=== PATIENT | male | born 1975 | race Caucasian/White ===

== ENCOUNTER 2022-11-10 16:49 | Inpatient (IN) ==
[2022-11-10] MEDS ORDERED: SODIUM CHLORIDE 0.9% 1000ML 2,000 ML IV ONE (17:32)
--- NOTE | 2022-11-10 17:59 | Emergency Department Note ---
Impression & Plan Abdominal pain, Diarrhea ED Provider Note NAME: ROCKY ANGUIANO AGE: 46 SEX: M : 1975 ARRIVES VIA: Walk-In INFORMANT: Patient ED PROVIDER(S): Skyler Spangler DO CHIEF COMPLAINT: Abdominal pain HPI: Patient is a 46-year-old male who presents to the ER for diffuse abdominal pain and intermittent diarrhea and constipation for the past 1-1/2 months. Pain is diffuse throughout the belly. Denies any headache or change in vision. Admits to nausea and some intermittent vomiting. No dysuria, urgency, or frequency. No other exacerbating or remitting factors. He does have an appointment coming up with dental for removal of teeth. No blood in stool. PAST MEDICAL HISTORY:See Below PAST SURGICAL HISTORY:See Below FAMILY HISTORY:See Below SOCIAL HISTORY:See Below HOME MEDICATIONS:See Below ALLERGIES:See Below VITALS:See Below PHYSICAL EXAMINATION: GENERAL: Sitting up in bed, alert, well appearing, well nourished, no distress, non-toxic EYE EXAM: normal conjunctiva. OROPHARYNX: mucous membranes are moist NECK: supple, no nuchal rigidity, no adenopathy, non-tender LUNGS: Clear to auscultation. Normal chest wall mechanics HEART: no murmurs, S1 normal and S2 normal ABDOMEN: abdomen soft, non-tender, normo-active bowel sounds, no masses, no rebound or guarding. 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 UPPER EXTREMITIES: upper extremities are grossly normal. LOWER EXTREMITIES: No pitting edema. NEURO EXAM: Normal sensorium, cranial nerves II-XII grossly intact, normal spee ch, no gross weakness of arms, no gross weakness of legs. MEDICAL DECISION MAKING: Patient is a 46-year-old male who presents to the ER for abdominal pain associate with diarrhea and constipation intermittently. Does have a history of IBS. IV was established blood work was obtained. Labs show mild leukocytosis 12.7 thousand. Hemoglobin was elevated to 18 which I favor secondary to D hydration. BMP with LFTs bili Mike was unremarkable. UA was clean. Stool cul ture was clean. Patient was positive for COVID. Patient was given IV fluids Bentyl and Toradol. Updated him following a CT which showed a small amount of colitis I did recommend following up with gastroenterology as an outpatient. He requested to see the hospitalist as he did not want to leave. I discussed with Dr. Medellin evaluated him and admitted him as he was COVID-positive for GI to evaluate in the morning. Triage Nursing notes reviewed. Limited review of prior medical records performed Vital Signs: reviewed and remarkable for no significant abnormalities Differential diagnosis: Differential diagnoses includes but is not limited to gastritis, peptic ulcer disease, GERD, gallbladder disease, pancreatitis, small bowel obstruction, appendicitis, diverticulitis, hernia, urinary tract infection, torsion, perforation, trauma, infectious. ER treatment provided: See below Diagnostics interpreted by me include EKG and cardiac monitoring as listed below: -Cardiac Monitoring: An order was placed for continuous cardiac monitoring. The monitor shows a rate of 90 with sinus rhythm. -ECG: none -Laboratory studies:Interpreted by me as stated above in MDM and shown below. Imaging studies: Xrays: As interpreted by me:none CTs show: CT abdomen pelvis shows no obstruction per my read Consultation(s): As described in MDM Procedures:none Critical Care: None Past Med/Surg History Social History Smoking Status: Current every day smoker Preferred Language: Tam[place] Feels Safe at Home: Yes Home Meds Home Medications Medication Instructions Recorded Confirmed atorvastatin 40 mg tablet 40 mg PO DAILY 11/10/22 11/10/22 bupropion HCl 150 mg 24 hr tablet, 150 mg PO DAILY 11/10/22 11/10/22 extended release omeprazole 40 mg capsule,delayed 40 mg PO DAILY 11/10/22 11/10/22 release quetiapine 400 mg tablet 400 mg PO DAILY 11/10/22 11/10/22 Previous Rx's Medication Instructions Recorded dicyclomine 10 mg capsule 10 mg PO BID #10 caps 11/10/22 Results & Data (ED) Vital Signs Vital Signs - 24 hr 11/10/22 16:51 11/10/22 19:05 Temperature 36.8 C Temperature Source Temporal Artery Scan Pulse Rate 113 H Pulse Rate [Finger] 92 H Respiratory Rate 20 20 Blood Pressure 132/91 Blood Pressure [Right Arm] 138/82 Blood Pressure Mean 104 Blood Pressure Mean [Right Arm] 100 Pulse Oximetry 96 95 Oxygen Delivery Method Room Air Room Air Sepsis Recent Fever Within 48 Hours No Sepsis New/Unexplained Change in Mental Status N/A Sepsis Action Taken by Nursing No Action Required Laboratory Data 11/10/22 17:49 11/10/22 17:49 Lab Results 11/10/22 11/10/22 11/10/22 Range/Units 17:49 17:49 17:52 WBC 12.74 H (4.8-10.8) K/ul RBC 5.97 (4.70-6.10) M/uL Hgb 18.9 H (14.0-18.0) g/dl Hct 52.9 H (42.0-52.0) % MCV 88.6 (80.0-100.0) fL MCH 31.7 (25.0-34.0) pg MCHC 35.7 (32.0-36.0) g/dL RDW Std Deviation 36.1 L (36.4-46.3) fL RDW Coeff of Calderon 11.4 L (11.5-14.5) % Plt Count 220 (130-400) K/uL MPV 10.9 (9.4-12.4) fL Immature Gran % (Auto) 0.5 % Neut % (Auto) 80.6 % Lymph % (Auto) 13.2 % Bledsoe % (Auto) 5.3 % Eos % (Auto) 0.2 % Baso % (Auto) 0.2 % Neut # (Auto) 10.28 H (1.40-6.50) K/uL Lymph # (Auto) 1.68 (1.2-3.4) K/uL Bledsoe # (Auto) 0.67 H (0.11-0.59) K/uL Eos # (Auto) 0.02 (0-0.50) K/uL Baso # (Auto) 0.03 (0-0.2) K/uL Immature Gran # (Auto) 0.06 (0.01-0.20) K/uL Sodium 138 (136-145) mmol/L Potassium 3.8 (3.5-5.1) mmol/L Chloride 109 H (98-107) mmol/L Carbon Dioxide 22 (21-32) mmol/L Anion Gap 7 (3-11) BUN 5 L (6-23) mg/dl Creatinine 0.71 (0.6-1.4) mg/dl Est Cr Clr Drug Dosing Not Reportable Est GFR ( Amer) 129.5 ml/min Est GFR (Non-Af Amer) 111.7 ml/min BUN/Creatinine Ratio 7.0 L (10-20) Glucose 99 (70-99(Fasting)) mg/dl Calcium 9.6 (8.6-10.3) mg/dl Total Bilirubin 0.5 (0.2-1.0) mg/dl AST 14 (13-39) U/L ALT 8 (7-52) U/L Alkaline Phosphatase 96 (34-104) U/L Total Protein 7.2 (6.0-8.3) gm/dl Albumin 3.9 (3.4-5.0) gm/dl Globulin 3.3 (2.5-4.0) gm/dl Albumin/Globulin Ratio 1.2 (0.9-2) Lipase 15 (11-82) U/L Urine Color Yellow Urine Appearance Clear (Clear) Urine pH 7.5 (4.5-7.5) Ur Specific Economy 1.003 (1.000-1.030) Urine Protein Negative (Negative) Urine Glucose (UA) Negative (Negative) Urine Ketones Negative (Negative) Urine Blood Negative (Negative) Urine Nitrite Negative (Negative) Urine Bilirubin Negative (Negative) Urine Urobilinogen Negative (Negative) Ur Leukocyte Esterase Negative (Negative) Stl C. cayetanensis PCR (NotDetected) Stool Rotavirus A PCR (NotDetected) Stl Adenov F 40/41 PCR (NotDetected) Stool Astrovirus (PCR) (NotDetected) Stool Campylobacter PCR (NotDetected) Stl C. diff Tox B Gene (Neg) Stool Cryptosporidium PCR (NotDetected) Stl E.coli Shiga Tox PCR (NotDetected) Stl Enterotoxigenic E PCR (NotDetected) Stool EPEC (PCR) (NotDetected) Stool EAEC (PCR) (NotDetected) Stl E. histolytica PCR (NotDetected) Stool Giardia Lamblia PCR (NotDetected) Stool Salmonella PCR (NotDetected) Stool Sapovirus (PCR) (NotDetected) Stl P. shigelloides PCR (NotDetected) Stl Shigella/EIEC PCR (NotDetected) St Y.enterocolitica PCR (NotDetected) Stool Vibrio (PCR) (NotDetected) Stl Vibrio cholerae PCR (NotDetected) Stl Norovirus GI/GII PCR (NotDetected) SARS-CoV-2, RNA, NAAT (NEGATIVE) 11/10/22 11/10/22 11/10/22 Range/Units 18:39 18:39 21:05 WBC (4.8-10.8) K/ul RBC (4.70-6.10) M/uL Hgb (14.0-18.0) g/dl Hct (42.0-52.0) % MCV (80.0-100.0) fL MCH (25.0-34.0) pg MCHC (32.0-36.0) g/dL RDW Std Deviation (36.4-46.3) fL RDW Coeff of Calderon (11.5-14.5) % Plt Count (130-400) K/uL MPV (9.4-12.4) fL Immature Gran % (Auto) % Neut % (Auto) % Lymph % (Auto) % Bledsoe % (Auto) % Eos % (Auto) % Baso % (Auto) % Neut # (Auto) (1.40-6.50) K/uL Lymph # (Auto) (1.2-3.4) K/uL Bledsoe # (Auto) (0.11-0.59) K/uL Eos # (Auto) (0-0.50) K/uL Baso # (Auto) (0-0.2) K/uL Immature Gran # (Auto) (0.01-0.20) K/uL Sodium (136-145) mmol/L Potassium (3.5-5.1) mmol/L Chloride (98-107) mmol/L Carbon Dioxide (21-32) mmol/L Anion Gap (3-11) BUN (6-23) mg/dl Creatinine (0.6-1.4) mg/dl Est Cr Clr Drug Dosing Est GFR ( Amer) ml/min Est GFR (Non-Af Amer) ml/min BUN/Creatinine Ratio (10-20) Glucose (70-99(Fasting)) mg/dl Calcium (8.6-10.3) mg/dl Total Bilirubin (0.2-1.0) mg/dl AST (13-39) U/L ALT (7-52) U/L Alkaline Phosphatase (34-104) U/L Total Protein (6.0-8.3) gm/dl Albumin (3.4-5.0) gm/dl Globulin (2.5-4.0) gm/dl Albumin/Globulin Ratio (0.9-2) Lipase (11-82) U/L Urine Color Urine Appearance (Clear) Urine pH (4.5-7.5) Ur Specific Economy (1.000-1.030) Urine Protein (Negative) Urine Glucose (UA) (Negative) Urine Ketones (Negative) Urine Blood (Negative) Urine Nitrite (Negative) Urine Bilirubin (Negative) Urine Urobilinogen (Negative) Ur Leukocyte Esterase (Negative) Stl C. cayetanensis PCR Not Detected (NotDetected) Stool Rotavirus A PCR Not Detected (NotDetected) Stl Adenov F 40/41 PCR Not Detected (NotDetected) Stool Astrovirus (PCR) Not Detected (NotDetected) Stool Campylobacter PCR Not Detected (NotDetected) Stl C. diff Tox B Gene Negative Cdiff Gene (Neg) Stool Cryptosporidium PCR Not Detected (NotDetected) Stl E.coli Shiga Tox PCR Not Detected (NotDetected) Stl Enterotoxigenic E PCR Not Detected (NotDetected) Stool EPEC (PCR) Not Detected (NotDetected) Stool EAEC (PCR) Not Detected (NotDetected) Stl E. histolytica PCR Not Detected (NotDetected) Stool Giardia Lamblia PCR Not Detected (NotDetected) Stool Salmonella PCR Not Detected (NotDetected) Stool Sapovirus (PCR) Not Detected (NotDetected) Stl P. shigelloides PCR Not Detected (NotDetected) Stl Shigella/EIEC PCR Not Detected (NotDetected) St Y.enterocolitica PCR Not Detected (NotDetected) Stool Vibrio (PCR) Not Detected (NotDetected) Stl Vibrio cholerae PCR Not Detected (NotDetected) Stl Norovirus GI/GII PCR Not Detected (NotDetected) SARS-CoV-2, RNA, NAAT POSITIVE A* (NEGATIVE) Administered Medications Discontinued Medications Dicyclomine HCl (Dicyclomine Hcl 10 Mg Cap) 10 mg PO NOW ONE Stop: 11/10/22 20:21 Last Admin: 11/10/22 21:02 Dose: 10 mg Documented By: KMF Sodium Chloride (Nss 1000ml) 2,000 mls @ 999 mls/hr IV .Q2H1M ONE Stop: 11/10/22 19:32 Last Infusion: 11/10/22 20:37 Dose: 0 mls/hr Documented By: Admin: 11/10/22 17:48 Dose: 999 mls/hr Documented By: RICO Ioversol (Optiray 350 100ml) 87 ml IV ONCE ONE Stop: 11/10/22 18:30 Last Admin: 11/10/22 18:29 Dose: 87 ml Documented By: ZINA Ketorolac Tromethamine (Ketorolac Tromethamine 15 Mg/Ml Vial) 15 mg IV NOW ONE Stop: 11/10/22 20:02 Last Admin: 11/10/22 20:05 Dose: 15 mg Documented By: KAVEH Imaging Data Radiologist's Impression: Abdomen/Pelvis CT 11/10/22 17:32 CT SCAN OF THE ABDOMEN AND PELVIS WITH IV CONTRAST CLINICAL HISTORY: Generalized abdominal pain. Nausea and diarrhea. COMPARISON STUDY: No priors. TECHNIQUE: Following the IV administration of 87 cc of Optiray 350, CT scan of the abdomen and pelvis is performed from the lung bases to the proximal femora. Images are reviewed in the axial, sagittal, and coronal planes. IV contrast was administered without complication. A dose lowering technique was utilized adhering to the principles of ALARA. CT DOSE: 526.82 mGy.cm FINDINGS: Lung bases: The heart is normal in size and without pericardial effusion. The lung bases are clear. Liver: The contrast-enhanced liver is normal in size, contour, and attenuation. There is no intrahepatic biliary ductal dilatation. The hepatic veins and portal veins are patent. Gallbladder: Unremarkable. Spleen: Normal in size and attenuation. Pancreas: Unremarkable. Adrenal glands: Unremarkable. Kidneys: The contrast enhanced kidneys are normal in size and without hydro nephrosis. The kidneys enhance symmetrically. There are at least 2 nonobstructing calculi seen in both kidneys. These measure up to 4 mm. No ureteral stone is identified. There are numerous small bilateral renal cysts (greater than 10 on the right and at least 7 on the left). The largest cysts are in the right upper pole and measure up to 2.3 cm. Abdominal vasculature: The abdominal aorta is normal in course and caliber noting scattered foci of atherosclerotic calcification. Bowel: There is no bowel obstruction. Liquid stool seen throughout the colon. Mild wall thickening is seen involving the left colon with faint surrounding infiltration. The appendix is well-visualized and normal. Peritoneum: There is no intraperitoneal free air or abdominal ascites. Lymphadenopathy: None. Pelvic viscera: The bladder is distended but otherwise normal in appearance. The prostate and seminal vesicles are normal as visualized. Skeletal structures: No lytic or blastic lesions are seen. There is a mild chronic superior endplate compression deformity of L1. IMPRESSION: 1. There is evidence of a mild nonspecific colitis. Clinical correlation will be required. 2. Bilateral nephrolithiasis. 3. There are numerous small bilateral renal cysts. 4. Additional findings as above. ACT 112: Negative or not required by law. Electronically signed by: Driss Gonzales M.D. 11/10/2022 7:25 PM Discharge Plan Visit Data Chief Complaint: Illness Stated Complaint: CONSTIPATION, DIARRHEA, DENTAL INFECTION ED Provider: Skyler Spangler Discharge Problem: Abdominal pain, Diarrhea Discharge Instructions Krames/Other Patient Handouts: Abdominal Pain Activity Restrictions/Additional Instructions: Please follow up with your primary care doctor with in the next 24 hours. Any worsening of your symptoms, please return to the ED immediately. This includes any fevers greater than 100.4, worsening pain, chest pain, shortness breath, persistent nausea, vomiting, unable to eat or drink, or any other concerning signs or symptoms from your standpoint. You were found to have a blood pressure greater than 120 systolic over 90 diastolic. Due to the new Medicare guidelines, we are now recommending that you follow up with your primary care doctor in regards to this elevated blood pressure. Forms Stand Alone Forms: [facility] [employer] Prescriptions Prescriptions: New dicyclomine 10 mg capsule 10 mg PO BID Qty: 10 0RF No Action atorvastatin 40 mg tablet 40 mg PO DAILY bupropion HCl 150 mg tablet extended release 24 hr 150 mg PO DAILY omeprazole 40 mg capsule,delayed release(DR/EC) 40 mg PO DAILY quetiapine 400 mg tablet 400 mg PO DAILY Referrals Referrals: PCP,NO [Physician] -
[2022-11-10 18:09] LABS: Appearance Urine Clear (Clear); Bilirubin Urine Negative (Negative); Blood Urine Negative (Negative); Color Urine Yellow; Glucose Urine UA Negative (Negative); Ketones Urine Negative (Negative); Leukocyte Esterase Urine Negative (Negative); Nitrite Urine Negative (Negative); Protein Urine Negative (Negative); Specific Gravity Urine 1.003 (1.000-1.030); Urobilinogen Urine Negative (Negative); pH Urine 7.5 (4.5-7.5)
[2022-11-10 18:11] LABS: Basophils # (auto) 0.03 K/uL (0-0.2); Basophils % (auto) 0.2 %; Eosinophils # (auto) 0.02 K/uL (0-0.50); Eosinophils % (auto) 0.2 %; Hematocrit (blood only) 52.9 % (42.0-52.0); Hemoglobin 18.9 g/dl (14.0-18.0); Immature Granulocytes # (auto) 0.06 K/uL (0.01-0.20); Immature Granulocytes % (auto) 0.5 %; Lymphocytes # (auto) 1.68 K/uL (1.2-3.4); Lymphocytes % (auto) 13.2 %; Mean Corpuscular Hemoglobin 31.7 pg (25.0-34.0); Mean Corpuscular Hgb Conc 35.7 g/dL (32.0-36.0); Mean Corpuscular Volume 88.6 fL (80.0-100.0); Mean Platelet Volume 10.9 fL (9.4-12.4); Monocytes # (auto) 0.67 K/uL (0.11-0.59); Monocytes % (auto) 5.3 %; Neutrophils # (auto) 10.28 K/uL (1.40-6.50); Neutrophils % (auto) 80.6 %; Platelet Count 220 K/uL (130-400); RDW Coefficient of Variation 11.4 % (11.5-14.5); RDW Standard Deviation 36.1 fL (36.4-46.3); Red Blood Count 5.97 M/uL (4.70-6.10); White Blood Count 12.74 K/ul (4.8-10.8)
[2022-11-10 18:23] LABS: Alanine Aminotransferase 8 U/L (7-52); Albumin Globulin Ratio 1.2 (0.9-2); Albumin Level 3.9 gm/dl (3.4-5.0); Alkaline Phosphatase 96 U/L (34-104); Anion Gap 7 (3-11); Aspartate Aminotransferase 14 U/L (13-39); Bilirubin,Total 0.5 mg/dl (0.2-1.0); Blood Urea Nitrogen 5 mg/dl (6-23); Calcium 9.6 mg/dl (8.6-10.3); Carbon Dioxide 22 mmol/L (21-32); Chloride 109 mmol/L (98-107); Est GFR (African American) 129.5 ml/min; Est GFR (Non-African American) 111.7 ml/min; Globulin 3.3 gm/dl (2.5-4.0); Glucose 99 mg/dl (70-99(Fasting)); Lipase 15 U/L (11-82); Potassium 3.8 mmol/L (3.5-5.1); Sodium 138 mmol/L (136-145); Total Protein 7.2 gm/dl (6.0-8.3)
[2022-11-10] MEDS ORDERED: OPTIRAY 350 100ml IV ONE (18:29)
--- NOTE | 2022-11-10 19:27 | CT Scan Report ---
CT SCAN OF THE ABDOMEN AND PELVIS WITH IV CONTRAST CLINICAL HISTORY: Generalized abdominal pain. Nausea and diarrhea. COMPARISON STUDY: No priors. TECHNIQUE: Following the IV administration of 87 cc of Optiray 350, CT scan of the abdomen and pelvi s is performed from the lung bases to the proximal femora. Images are reviewed in the axial, sagittal , and coronal planes. IV contrast was administered without complication. A dose lowering technique wa s utilized adhering to the principles of ALARA. CT DOSE: 526.82 mGy.cm FINDINGS: Lung bases: The heart is normal in size and without pericardial effusion. The lung bases are clear. Liver: The contrast-enhanced liver is normal in size, contour, and attenuation. There is no intrahepa tic biliary ductal dilatation. The hepatic veins and portal veins are patent. Gallbladder: Unremarkable. Spleen: Normal in size and attenuation. Pancreas: Unremarkable. Adrenal glands: Unremarkable. Kidneys: The contrast enhanced kidneys are normal in size and without hydronephrosis. The kidneys enh ance symmetrically. There are at least 2 nonobstructing calculi seen in both kidneys. These measure u p to 4 mm. No ureteral stone is identified. There are numerous small bilateral renal cysts (greater t pimentel 10 on the right and at least 7 on the left). The largest cysts are in the right upper pole and me asure up to 2.3 cm. Abdominal vasculature: The abdominal aorta is normal in course and caliber noting scattered foci of a therosclerotic calcification. Bowel: There is no bowel obstruction. Liquid stool seen throughout the colon. Mild wall thickening is seen involving the left colon with faint surrounding infiltration. The appendix is well-visualized and normal. Peritoneum: There is no intraperitoneal free air or abdominal ascites. Lymphadenopathy: None. Pelvic viscera: The bladder is distended but otherwise normal in appearance. The prostate and seminal vesicles are normal as visualized. Skeletal structures: No lytic or blastic lesions are seen. There is a mild chronic superior endplate compression deformity of L1. IMPRESSION: 1. There is evidence of a mild nonspecific colitis. Clinical correlation will be required. 2. Bilateral nephrolithiasis. 3. There are numerous small bilateral renal cysts. 4. Additional findings as above. ACT 112: Negative or not required by law. Electronically signed by: Driss Gonzales M.D. 11/10/2022 7:25 PM
[2022-11-10] MEDS ORDERED: KETOROLAC TROMETHAMINE 15 MG/ML VIAL IV ONE (20:01)
[2022-11-10 20:11] LABS: Adenovirus F 40/41 PCR Not Detected (NotDetected); Astrovirus PCR Not Detected (NotDetected); Campylobacter PCR Not Detected (NotDetected); Cryptosporidium PCR Not Detected (NotDetected); Cyclospora cayetanensis PCR Not Detected (NotDetected); Entamoeba histolytica PCR Not Detected (NotDetected); Enteroaggregative E.coli(EAEC) Not Detected (NotDetected); Enteropathogenic E.coli (EPEC) Not Detected (NotDetected); Enterotoxigenic E.coli (ETEC) Not Detected (NotDetected); Giardia lamblia PCR Not Detected (NotDetected); Norovirus GI/GII PCR Not Detected (NotDetected); Plesiomonas shigelloides PCR Not Detected (NotDetected); Rotavirus A PCR Not Detected (NotDetected); Salmonella PCR Not Detected (NotDetected); Sapovirus PCR Not Detected (NotDetected); Shiga-like Toxin E.coli (STEC) Not Detected (NotDetected); Shigella/Enteroinvasive E.coli Not Detected (NotDetected); Vibrio cholerae PCR Not Detected (NotDetected); Vibrio species PCR Not Detected (NotDetected); Yersinia enterocolitica PCR Not Detected (NotDetected)
[2022-11-10] MEDS ORDERED: DICYCLOMINE HCL 10 MG CAP PO ONE (20:20)
[2022-11-10] MEDS ORDERED: Patient's ALLERGY Info needs ENTERED STA (21:40)
[2022-11-10] MEDS ORDERED: ONDANSETRON INJ 2 MG/ML 2 ML VIAL IV STA (21:45)
[2022-11-10] MEDS ORDERED: MoRPHine SULFATE 2 MG/ML CARP IV STA (21:45)
[2022-11-10] MEDS: D5W AND 1/2NSS 1,000 ML IV SCH (23:14)
[2022-11-10] MEDS ORDERED: ACETAMINOPHEN 325 MG TAB PO PRN (23:14)
[2022-11-10] MEDS ORDERED: PIPERACILLIN/TAZOBACTAM 3.375 GM (over 30 mins) IV ONE (23:30)
--- NOTE | 2022-11-10 23:33 | History and Physical Report ---
DATE OF ADMISSION: 11/10/2022. CHIEF COMPLAINT: Abdominal pain, chronic diarrhea. HISTORY OF PRESENT ILLNESS: This is a 46-year-old male with past medical history significant for hyperlipidemia, fatty liver, vitamin D deficiency, GERD, obesity, recurrent depression, history of suicide attempt, generalized anxiety disorder, tobacco use disorder, presents with severe abdominal pain, cramps in his abdomen, going into his rectal region, having diarrhea for several months and also currently is having some nausea and vomiting bringing just some foam, has some runny nose and cough. Denies any fevers. He also gets on and off chest pains, it is most likely gas pain coming from the stomach. Has some headache, some blurred visions. Has poor dentition. Has teeth aches and is supposed to see dentist next month and plan for tooth extraction as per patient.The pain is radiating to his right ear. He was also in [facility] in June. At that time, he complained of losing weight and bowel changes and was also found to have anal mass. 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 There is a plan for resection of the mass in January. Stool BioFire came back negative, but rapid COVID test came back positive. CT abdomen and pelvis is showing nonspecific colitis, hemodynamically stable. ALLERGIES: BEE VENOM, LACTULOSE. PAST MEDICAL HISTORY: As mentioned above. PAST SURGICAL HISTORY: EGDs, IR biopsy. MEDICATIONS: The patient is on atorvastatin 40 mg p.o. daily, bupropion 150 mg p.o. daily, dicyclomine 10 mg p.o. b.i.d., omeprazole 40 mg p.o. daily, quetiapine 400 mg p.o. daily. FAMILY HISTORY: Significant for no family history on file. SOCIAL HISTORY: Smokes 1 pack, currently smoking about 1-2 packs a day. Alcohol, little. Smokes marijuana as per records. REVIEW OF SYSTEMS: As per HPI. Rest of the review of systems is negative. PHYSICAL EXAMINATION: GENERAL: The patient is of moderate build, not in acute distress. VITAL SIGNS: Temperature 36.8, pulse 92, respiratory rate 20, blood pressure 138/82, oxygen 95% on room air. HEENT: Pupils equal, round, and reactive to light. Oral mucosa, poor dentition. NECK: No neck masses seen. CARDIOVASCULAR: S1 and S2 heard. Regular rate and rhythm. No murmur, no gallop. RESPIRATORY SYSTEM: Normal AP diameter. No accessory muscle use. No wheezing or crackles. ABDOMEN: Soft, bowel sounds present. Diffuse tenderness, guarding present, no distention. CENTRAL NERVOUS SYSTEM: Alert and oriented. Speech is clear. No facial droop. Obeys simple commands. Moves extremities. EXTREMITIES: No edema, no erythema. GASTROINTESTINAL: Visible mass in the anal region. LABORATORY DATA: WBC 12, hemoglobin 18.9, hematocrit 52.9, platelets 220. Sodium 138, potassium 3.8, chloride 109, CO2 of 22, BUN 5, creatinine 0.7, serum glucose 99, calcium 9.6, total bilirubin 0.5, AST 14, AST14, alkaline phosphatase 96, lipase 15. Urinalysis negative. Stool studies, BioFire negative. SARS-CoV-2 rapid test positive. IMAGING DATA: CT abdomen and pelvis with IV contrast is showing mild nonspecific colitis, bilateral nephrolithiasis, numerous small bilateral renal cysts. ASSESSMENT AND PLAN: This is a 46-year-old male who presents with ongoing abdominal pain and chronic diarrhea and nausea, no vomiting. 1. Abdominal pain, chronic diarrhea, nausea, vomiting: CT scan is showing nonspecific colitis. We will keep him in the hospital and clear liquid diet, IV fluids, IV antiemetics, IV pain medication p.r.n. GI consult in a.m. 2. 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 There is a plan for resection. 3. Poor dentition: There is plan to follow up with dentist. He is saying that they are going to take all his teeth out. We will empirically place him on Zosyn while in the hospital. 4. COVID positive: Has some cough and headache and some runny nose. Saturating okay on room air. Will do COVID precautions. 5. History of depression, suicidal ideations and attempts, generalized anxiety disorder: Continue his home medication of quetiapine, bupropion, ativan prn. 6. Ongoing tobacco abuse: Needs counseling. 7. Hyperlipidemia, on statin. 8. Deep venous thrombosis prophylaxis: Will place him on Lovenox. DISPOSITION: Closely monitor in the medical floor. PT/OT prior to discharge. Social service to help with discharge planning. Job ID: [id number] [facility]
[2022-11-10] MEDS: MoRPHine SULFATE 4 MG/ML 1 ML CARP\\VIAL IV PRN (23:37)
[2022-11-11] MEDS: ENOXAPARIN INJ 40 MG/0.4 ML SYR SQ SCH ×2 (00:04→20:52)
[2022-11-11] MEDS ORDERED: Nursing to Pharmacy Communication SCH (00:30)
[2022-11-11] MEDS: LORazepam 1 MG TAB PO PRN ×3 (00:38→14:33)
[2022-11-11] MEDS: NICOTINE 14 MG/24 HR PATCH TD SCH ×2 (00:39→07:20)
[2022-11-11] MEDS: QUEtiapine FUMARATE 200 MG TAB PO SCH ×2 (00:39→20:52)
[2022-11-11] MEDS: MoRPHine SULFATE 4 MG/ML 1 ML CARP\\VIAL IV PRN ×6 (04:01→22:21)
[2022-11-11] MEDS: ONDANSETRON INJ 2 MG/ML 2 ML VIAL IV PRN ×3 (04:02→18:29)
[2022-11-11 05:44] LABS: Basophils # (auto) 0.03 K/uL (0-0.2); Basophils % (auto) 0.3 %; Eosinophils # (auto) 0.05 K/uL (0-0.50); Eosinophils % (auto) 0.5 %; Hematocrit (blood only) 47.7 % (42.0-52.0); Hemoglobin 16.6 g/dl (14.0-18.0); Immature Granulocytes # (auto) 0.06 K/uL (0.01-0.20); Immature Granulocytes % (auto) 0.6 %; Lymphocytes # (auto) 3.65 K/uL (1.2-3.4); Lymphocytes % (auto) 34.6 %; Mean Corpuscular Hemoglobin 31.4 pg (25.0-34.0); Mean Corpuscular Hgb Conc 34.8 g/dL (32.0-36.0); Mean Corpuscular Volume 90.2 fL (80.0-100.0); Mean Platelet Volume 10.8 fL (9.4-12.4); Monocytes # (auto) 0.83 K/uL (0.11-0.59); Monocytes % (auto) 7.9 %; Neutrophils # (auto) 5.94 K/uL (1.40-6.50); Neutrophils % (auto) 56.1 %; Platelet Count 197 K/uL (130-400); RDW Coefficient of Variation 11.4 % (11.5-14.5); RDW Standard Deviation 37.1 fL (36.4-46.3); Red Blood Count 5.29 M/uL (4.70-6.10); White Blood Count 10.56 K/ul (4.8-10.8)
[2022-11-11 05:55] LABS: Calcium 8.5 mg/dl (8.6-10.3); Creatinine Clr Calc Pharmacy 133.6 ml/min; Est GFR (African American) 132.6 ml/min; Est GFR (Non-African American) 114.4 ml/min; Magnesium 1.6 mg/dl (1.7-2.4); Potassium 3.6 mmol/L (3.5-5.1)
[2022-11-11 06:02] LABS: Troponin I High Sensitivity 6.7 pg/ml (0-20)
[2022-11-11] MEDS: PIPERACILLIN/TAZOBACTAM 3.375 GM in DEXTROSE 5% 100 ML IV SCH ×3 (06:12→20:54)
[2022-11-11] MEDS: D5W AND 1/2NSS 1,000 ML IV SCH ×3 (06:12→20:53)
[2022-11-11 07:04] LABS: iSTAT Creatinine 0.7 mg/dl (0.6-1.3); iSTAT Hemoglobin 18.4 g/dl (14.0-18.0); iSTAT Ionized Calcium 1.23 mmol/l (1.12-1.32); iSTAT Potassium 3.7 mmol/L (3.3-5.0)
--- NOTE | 2022-11-11 07:18 | Electrocardiogram Report ---
Test Reason : Blood Pressure : / mmHG Vent. Rate : 082 BPM Atrial Rate : 082 BPM P-R Int : 148 ms QRS Dur : 088 ms QT Int : 372 ms P-R-T Axes : -11 015 017 degrees QTc Int : 434 ms Normal sinus rhythm Normal ECG No previous ECGs available Confirmed by Migel Ng ([id number]) on 11/11/2022 7:18:37 AM Referred By: REFERRED SELF Confirmed By:Rustam Ng
[2022-11-11] MEDS: PANTOprazole 40 MG TAB PO SCH (07:21)
[2022-11-11] MEDS: ATORVASTATIN 40 MG TAB PO SCH (07:21)
[2022-11-11] MEDS: buPROPion XL 150 MG TABCR PO SCH (07:21)
[2022-11-11] MEDS ORDERED: QUEtiapine FUMARATE 200 MG TAB PO SCH (09:00)
--- NOTE | 2022-11-11 13:28 | Hospitalist Progress Note ---
Date of Service November 11, 2022 Assessment & Plan (1) Diarrhea: Plan: Has been having diarrhea for about 2 months Has had colonoscopy about 2 to 3 months before did show polyps Increasing pain recently with ongoing diarrhea No abdominal distention, nausea and vomiting Stool test came back negative for any infection and C. difficile toxin is negative as well Awaiting GI input (2) Colitis: Plan: CT of the abdomen pelvis did show nonspecific colitis Has been started on intravenous Zosyn GI has been consulted (3) Abdominal pain: Plan: Increasing abdominal pain Abdomen remains soft Crying with pain Has been getting morphine 4 mg every 4 hours as needed Getting dicyclomine as well (4) Hyperlipidemia: Plan: Has been getting statin (5) GERD (gastroesophageal reflux disease): Plan: PPI (6) LINUS (generalized anxiety disorder): Plan: Has been getting bupropion (7) Recurrent depression: Plan: Has been on quetiapine and bupropion DVT prophylaxis Subcu Lovenox CODE STATUS Full Admission and Anticipated Discharge Date Admission Date: November 10, 2022 Subjective 11/11/2022 The patient was seen and examined in medical floor and in the COVID room He has been complaining of diarrhea which has been ongoing for about 2 months His abdominal pain and diarrhea got worse for the last day or 2 and he was brought into the emergency room No fever and or chills and the CT scan of the abdomen pelvis did show nonspecific colitis Review of Systems Review of Systems: All systems reviewed and are unremarkable except as noted below Gastrointestinal: Increasing abdominal pain with diarrhea. No abdominal distention Physical Exam Physical Exam: Lying in bed with pain Constitutional: + ill appearing and average body habitus Eyes: PERRL, conjunctivae normal, anicteric sclerae ENMT: external ear and nose normal, oropharynx normal Neck: trachea midline, no thyromegaly Respiratory: + respiratory distress Auscultation: lungs clear to auscultation bilaterally Cardiovascular: Rate/Rhythm: regular rate and regular rhythm Heart Sounds: normal S1 and normal S2; no murmur Extremities: no edema Gastrointestinal (Abdomen): Inspection/Auscultation: normal bowel sounds; abdomen not distended Percussion/Palpation: + abdomen tender (Tender all over. No guarding and no rigidity) and abdomen soft Musculoskeletal: No acute arthritis involving any joint Neurologic: normal touch/pain/proprioception and moves all extremities; no focal motor deficits Psychiatric: A+Ox3, euthymic affect Lymphatic: no cervical or axillary lymphadenopathy Results & Data Results & Data Vital Signs (Past 12 Hours) Vital Signs Temp Pulse Resp BP Pulse Ox O2 Del Method 11/11/22 07:16 36.8 C 81 18 122/83 97 Room Air Laboratory Results Short CBC 11/10/22 11/11/22 Range/Units 17:49 05:21 WBC 12.74 H 10.56 (4.8-10.8) K/ul Hgb 18.9 H 16.6 (14.0-18.0) g/dl Hct 52.9 H 47.7 (42.0-52.0) % Plt Count 220 197 (130-400) K/uL BMP 11/10/22 11/11/22 17:49 05:21 Sodium 138 141 Potassium 3.8 3.6 Chloride 109 H 113 H Carbon Dioxide 22 21 BUN 5 L 4 L Creatinine 0.71 0.67 Glucose 99 92 Calcium 9.6 8.5 L Liver Function 11/10/22 Range/Units 17:49 Total Bilirubin 0.5 (0.2-1.0) mg/dl AST 14 (13-39) U/L ALT 8 (7-52) U/L Alkaline Phosphatase 96 (34-104) U/L Albumin 3.9 (3.4-5.0) gm/dl Urine 11/10/22 Range/Units 17:52 Urine Color Yellow Urine Appearance Clear (Clear) Urine pH 7.5 (4.5-7.5) Ur Specific [place] 1.003 (1.000-1.030) Urine Protein Negative (Negative) Urine Glucose (UA) Negative (Negative) Medications Administered Current Inpatient Medications Acetaminophen (Acetaminophen 325 Mg Tab) 650 mg PO Q4H PRN PRN Reason: pain/fever Stop: 12/10/22 23:13 Atorvastatin Calcium (Atorvastatin 40 Mg Tab) 40 mg PO DAILY [facility] Stop: 12/11/22 08:59 Last Admin: 11/11/22 07:21 Dose: 40 mg Bupropion HCl (Bupropion Xl 150 Mg Tabcr) 150 mg PO DAILY [facility] Stop: 12/11/22 08:59 Last Admin: 11/11/22 07:21 Dose: 150 mg Enoxaparin Sodium (Enoxaparin Inj 40 Mg/0.4 Ml Syr) 40 mg SQ HS [facility] Stop: 12/10/22 23:13 Last Admin: 11/11/22 00:04 Dose: 40 mg Dextrose/Sodium Chloride (D5w And 1/2nss) 1,000 mls @ 125 mls/hr IV .Q8H [facility] Stop: 12/10/22 23:13 Last Admin: 11/11/22 13:15 Dose: 125 mls/hr Piperacillin Sod/Tazobactam (Sod 3.375 gm/ Dextrose) 115 mls @ 28.75 mls/hr IV Q8H [facility]; Protocol Stop: 11/21/22 05:59 Last Admin: 11/11/22 13:15 Dose: 28.8 mls/hr Lorazepam (Lorazepam 1 Mg Tab) 1 mg PO TID PRN PRN Reason: Anxiety Stop: 12/11/22 00:03 Last Admin: 11/11/22 07:34 Dose: 1 mg Miscellaneous (Remove Nicoderm Patch) 1 each N/A DAILY@0859 [facility] Stop: 12/11/22 08:58 Last Admin: 11/11/22 07:20 Dose: 1 each Morphine Sulfate (Morphine Sulfate 4 Mg/Ml 1 Ml Carp\Vial) 4 mg IV Q4H PRN PRN Reason: Pain Stop: 11/24/22 23:13 Last Admin: 11/11/22 11:05 Dose: 4 mg Nicotine (Nicotine 14 Mg/24 Hr Patch) 14 mg TD QAM [facility] Stop: 12/11/22 00:19 Last Admin: 11/11/22 07:20 Dose: 14 mg Ondansetron HCl (Ondansetron Inj 2 Mg/Ml 2 Ml Vial) 4 mg IV Q6H PRN PRN Reason: Nausea Stop: 12/10/22 23:13 Last Admin: 11/11/22 11:04 Dose: 4 mg Pantoprazole Sodium (Pantoprazole 40 Mg Tab) 40 mg PO DAILY [facility] Stop: 12/11/22 08:59 Last Admin: 11/11/22 07:21 Dose: 40 mg Quetiapine Fumarate (Quetiapine Fumarate 200 Mg Tab) 400 mg PO HS [facility] Stop: 12/11/22 00:29 Last Admin: 11/11/22 00:39 Dose: 400 mg
[2022-11-11] MEDS ORDERED: ALUMINUM/MAGNESIUM SUSP 30 ML UDC PO STA (17:48)
[2022-11-12] MEDS: MoRPHine SULFATE 4 MG/ML 1 ML CARP\\VIAL IV PRN ×5 (03:04→20:20)
[2022-11-12] MEDS: ONDANSETRON INJ 2 MG/ML 2 ML VIAL IV PRN ×3 (03:04→15:45)
[2022-11-12] MEDS: PIPERACILLIN/TAZOBACTAM 3.375 GM in DEXTROSE 5% 100 ML IV SCH ×3 (05:30→22:18)
[2022-11-12] MEDS: buPROPion XL 150 MG TABCR PO SCH (07:12)
[2022-11-12] MEDS: ATORVASTATIN 40 MG TAB PO SCH (07:12)
[2022-11-12] MEDS: LORazepam 1 MG TAB PO PRN ×3 (07:13→22:19)
[2022-11-12] MEDS: NICOTINE 14 MG/24 HR PATCH TD SCH (07:13)
[2022-11-12] MEDS: PANTOprazole 40 MG TAB PO SCH (07:13)
[2022-11-12] MEDS: D5W AND 1/2NSS 1,000 ML IV SCH ×2 (08:43→17:03)
--- NOTE | 2022-11-12 11:11 | Gastrointestinal Consultation ---
Date of Consultation November 12, 2022 Assessment & Plan (1) Colitis: Patient is a 46 years old male who presented with complaints of diffuse abdominal pain, loose stools this been going on for several months. Had a colonoscopy in June by [facility] which showed signs of colonic polyps, diverticulosis. 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 His stool bio fire was negative, CT abdomen pelvis showed nonspecific colitis. COVID-positive. He reports that he has bright red blood per rectum but this is not noted in his nurses notes. Vital signs and blood count all normal. - Monitor for signs of GI bleeding. - He had requested for EGD evaluation while inpt but in setting of COVID infection and stable blood ct, no witnessed hematemesis, melena, we would defer this and will plan on OP f/u and workup if indicated - Avoid ETOH, NSAIDs - PPI daily - Pls recall GI prn History of Present Illness Reason for Consultation: Diarrhea , non specific colitis Requesting Physician: Dr. Kaveh Corbin Attending Physician: Dr. Alex Friedman History of Present Illness Pt is a 46 yo male w PMHx of hyperlipidemia, fatty liver, vitamin D deficiency, GERD, obesity, recurrent depression, history of suicide attempt, generalized anxiety disorder, tobacco use disorder, who presented w c/o diffuse severe abdominal pain and diarrhea. States that he has been having the symptoms for several months now. Went to [facility] and had a colonoscopy in June 2022 which showed colon polyps, diverticulosis. H&P record also notes that he may have condylomata resulting from HPV. On his evaluation stool bio fire came back negative but rapid COVID test was positive. CT abdomen and pelvis significant for nonspecific colitis otherwise unremarkable. This morning patient reports that he is having nausea, would like to stay on liquid diet. He denies any dysphagia symptoms. Still having diffuse abdominal pain with several loose stools and bright red blood per rectum. His vital signs are normal, blood count also normal without signs of anemia or elevated BUN. He is requesting for an upper endoscopy to be done while he is inpatient. Allergies Allergy/AdvReac Type Severity Reaction Status Date / Time bee venom protein (honey bee) Allergy Unknown Verified 11/10/22 21:42 lactose AdvReac Mild Abdominal Verified 11/10/22 21:43 Pain Home Medications Medication Instructions Recorded Confirmed Type atorvastatin 40 mg tablet 40 mg PO DAILY 11/10/22 11/10/22 History bupropion HCl 150 mg 24 hr tablet, 150 mg PO DAILY 11/10/22 11/10/22 History extended release dicyclomine 10 mg capsule 10 mg PO BID #10 caps 11/10/22 Rx omeprazole 40 mg capsule,delayed 40 mg PO DAILY 11/10/22 11/10/22 History release quetiapine 400 mg tablet 400 mg PO DAILY 11/10/22 11/10/22 History Patient History Social History Smoking Status: Current every day smoker Cigarettes Per Day: 2 packs a day.; Second Hand Exposure: No; Do You Dip or Chew Tobacco: No; Tobacco Cessation Education Requested by Patient: No Hx Alcohol Use: No Hx Substance Use: Yes Substance Use Type Other:: Medical marijuana. Preferred Language: [place]ian Communication Ability: Effective Night Shift Manager Required: No Beliefs That Will Affect Care: None Current Living Situation: Alone Other Information That Helps Us Care for You: No Feels Safe at Home: Yes Safety Concerns: Feels Safe At This Time Assistive Devices: None Review of Systems Review of Systems: All systems reviewed & are unremarkable except as noted in HPI & below Physical Exam Constitutional: WD/WN, vitals as above well groomed, cooperative and comfortable Eyes: PERRL, conjunctivae normal, anicteric sclerae ENMT: external ear and nose normal, oropharynx normal Respiratory: normal respiratory effort, lungs clear to auscultation Cardiovascular: RRR, no murmur, no edema Gastrointestinal (Abdomen): Percussion/Palpation: + abdomen tender and abdomen soft hypoactive BS Skin: no rashes, warm and dry no jaundice Neurologic: Motor/Sensory: no asterixis Psychiatric: A+Ox3, euthymic affect Lymphatic: no lymphedema Results & Data Vital Signs (Past 12 Hours) Vital Signs Temp Pulse Resp BP Pulse Ox O2 Del Method 11/12/22 08:09 36.6 C 65 16 128/87 97 Room Air 11/12/22 07:09 36.3 C L 68 18 133/95 97 Room Air
--- NOTE | 2022-11-12 15:25 | Hospitalist Progress Note ---
Date of Service November 12, 2022 Assessment & Plan (1) Diarrhea: Plan: Has been having diarrhea for about 2 months Has had colonoscopy about 2 to 3 months before did show polyps Increasing pain recently with ongoing diarrhea No abdominal distention, nausea and vomiting Stool test came back negative for any infection and C. difficile toxin is negative as well Awaiting GI input-appreciate input and recommendation for outpatient EGD and may be colonoscopy Diarrhea continues to be a problem Will start Imodium (2) Colitis: Plan: CT of the abdomen pelvis did show nonspecific colitis Has been started on intravenous Zosyn GI has been consulted Clinically not any better No abdominal distention, no fever or chills. No nausea no vomiting We will continue current antibiotic (3) Abdominal pain: Plan: Increasing abdominal pain Abdomen remains soft Crying with pain Has been getting morphine 4 mg every 4 hours as needed Getting dicyclomine as well Pain is reasonably controlled with morphine (4) Hyperlipidemia: Plan: Has been getting statin (5) GERD (gastroesophageal reflux disease): Plan: PPI (6) LINUS (generalized anxiety disorder): Plan: Has been getting bupropion (7) Recurrent depression: Plan: Has been on quetiapine and bupropion DVT prophylaxis Subcu Lovenox CODE STATUS Full Admission and Anticipated Discharge Date Admission Date: November 10, 2022 Subjective 11/11/2022 The patient was seen and examined in medical floor and in the COVID room He has been complaining of diarrhea which has been ongoing for about 2 months His abdominal pain and diarrhea got worse for the last day or 2 and he was brought into the emergency room No fever and or chills and the CT scan of the abdomen pelvis did show nonspecific colitis 11/12/2022 The patient was seen and examined in medical floor and in the COVID room He complains today of severe abdominal pain with profuse diarrhea Has had 2 episodes of blood with the diarrhea Denies any fever and or chills Review of Systems Review of Systems: All systems reviewed and are unremarkable except as noted below Gastrointestinal: Increasing abdominal pain with diarrhea. No abdominal distention Physical Exam Physical Exam: Lying in bed with pain Constitutional: + ill appearing and average body habitus Eyes: PERRL, conjunctivae normal, anicteric sclerae ENMT: external ear and nose normal, oropharynx normal Neck: trachea midline, no thyromegaly Respiratory: + respiratory distress Auscultation: lungs clear to auscultation bilaterally Cardiovascular: Rate/Rhythm: regular rate and regular rhythm Heart Sounds: normal S1 and normal S2; no murmur Extremities: no edema Gastrointestinal (Abdomen): Inspection/Auscultation: normal bowel sounds; abdomen not distended Percussion/Palpation: + abdomen tender (Tender all over. No guarding and no rigidity) and abdomen soft Neurologic: normal touch/pain/proprioception and moves all extremities; no focal motor deficits Psychiatric: A+Ox3, euthymic affect Lymphatic: no cervical or axillary lymphadenopathy Results & Data Results & Data Vital Signs (Past 12 Hours) Vital Signs Temp Pulse Resp BP Pulse Ox O2 Del Method 11/12/22 14:12 36.9 C 79 18 148/87 H 97 Room Air 11/12/22 08:09 36.6 C 65 16 128/87 97 Room Air 11/12/22 07:09 36.3 C L 68 18 133/95 97 Room Air Medications Administered Current Inpatient Medications Acetaminophen (Acetaminophen 325 Mg Tab) 650 mg PO Q4H PRN PRN Reason: pain/fever Stop: 12/10/22 23:13 Atorvastatin Calcium (Atorvastatin 40 Mg Tab) 40 mg PO DAILY [facility] Stop: 12/11/22 08:59 Last Admin: 11/12/22 07:12 Dose: 40 mg Bupropion HCl (Bupropion Xl 150 Mg Tabcr) 150 mg PO DAILY [facility] Stop: 12/11/22 08:59 Last Admin: 11/12/22 07:12 Dose: 150 mg Enoxaparin Sodium (Enoxaparin Inj 40 Mg/0.4 Ml Syr) 40 mg SQ HS [facility] Stop: 12/10/22 23:13 Last Admin: 11/11/22 20:52 Dose: 40 mg Dextrose/Sodium Chloride (D5w And 1/2nss) 1,000 mls @ 125 mls/hr IV .Q8H [facility] Stop: 12/10/22 23:13 Last Infusion: 11/12/22 11:24 Dose: 125 mls/hr Piperacillin Sod/Tazobactam (Sod 3.375 gm/ Dextrose) 115 mls @ 28.75 mls/hr IV Q8H [facility]; Protocol Stop: 11/21/22 05:59 Last Admin: 11/12/22 14:13 Dose: 28.8 mls/hr Loperamide HCl (Loperamide Hcl 2 Mg Cap) 2 mg PO Q3H PRN PRN Reason: Diarrhea Stop: 12/12/22 15:18 Lorazepam (Lorazepam 1 Mg Tab) 1 mg PO TID PRN PRN Reason: Anxiety Stop: 12/11/22 00:03 Last Admin: 11/12/22 07:13 Dose: 1 mg Miscellaneous (Remove Nicoderm Patch) 1 each N/A DAILY@0859 [facility] Stop: 12/11/22 08:58 Last Admin: 11/12/22 07:12 Dose: 1 each Morphine Sulfate (Morphine Sulfate 4 Mg/Ml 1 Ml Carp\Vial) 4 mg IV Q4H PRN PRN Reason: Pain Stop: 11/24/22 23:13 Last Admin: 11/12/22 11:24 Dose: 4 mg Nicotine (Nicotine 14 Mg/24 Hr Patch) 14 mg TD QAM [facility] Stop: 12/11/22 00:19 Last Admin: 11/12/22 07:13 Dose: 14 mg Ondansetron HCl (Ondansetron Inj 2 Mg/Ml 2 Ml Vial) 4 mg IV Q6H PRN PRN Reason: Nausea Stop: 12/10/22 23:13 Last Admin: 11/12/22 08:43 Dose: 4 mg Pantoprazole Sodium (Pantoprazole 40 Mg Tab) 40 mg PO DAILY [facility] Stop: 12/11/22 08:59 Last Admin: 11/12/22 07:13 Dose: 40 mg Quetiapine Fumarate (Quetiapine Fumarate 200 Mg Tab) 400 mg PO HS [facility] Stop: 12/11/22 00:29 Last Admin: 11/11/22 20:52 Dose: 400 mg
[2022-11-12] MEDS: LOPERAMIDE HCL 2 MG CAP PO PRN (15:44)
[2022-11-12] MEDS: QUEtiapine FUMARATE 200 MG TAB PO SCH (20:19)
[2022-11-12] MEDS: ENOXAPARIN INJ 40 MG/0.4 ML SYR SQ SCH (20:20)
[2022-11-13] MEDS: D5W AND 1/2NSS 1,000 ML IV SCH ×3 (00:44→15:16)
[2022-11-13] MEDS: MoRPHine SULFATE 4 MG/ML 1 ML CARP\\VIAL IV PRN ×5 (00:44→17:20)
[2022-11-13] MEDS: ONDANSETRON INJ 2 MG/ML 2 ML VIAL IV PRN ×4 (00:45→21:37)
[2022-11-13] MEDS: PIPERACILLIN/TAZOBACTAM 3.375 GM in DEXTROSE 5% 100 ML IV SCH ×3 (05:50→21:38)
[2022-11-13 06:14] LABS: Basophils # (auto) 0.07 K/uL (0-0.2); Basophils % (auto) 0.7 %; Eosinophils # (auto) 0.29 K/uL (0-0.50); Eosinophils % (auto) 2.9 %; Hematocrit (blood only) 45.5 % (42.0-52.0); Immature Granulocytes # (auto) 0.05 K/uL (0.01-0.20); Immature Granulocytes % (auto) 0.5 %; Lymphocytes # (auto) 3.35 K/uL (1.2-3.4); Lymphocytes % (auto) 33.8 %; Mean Corpuscular Hemoglobin 31.4 pg (25.0-34.0); Mean Corpuscular Hgb Conc 35.2 g/dL (32.0-36.0); Mean Corpuscular Volume 89.4 fL (80.0-100.0); Mean Platelet Volume 10.8 fL (9.4-12.4); Monocytes # (auto) 0.87 K/uL (0.11-0.59); Monocytes % (auto) 8.8 %; Neutrophils # (auto) 5.27 K/uL (1.40-6.50); Neutrophils % (auto) 53.3 %; Platelet Count 192 K/uL (130-400); RDW Coefficient of Variation 11.1 % (11.5-14.5); RDW Standard Deviation 36.4 fL (36.4-46.3); Red Blood Count 5.09 M/uL (4.70-6.10)
[2022-11-13 06:22] LABS: Albumin Globulin Ratio 1.3 (0.9-2); Albumin Level 3.2 gm/dl (3.4-5.0); Bilirubin,Total 0.5 mg/dl (0.2-1.0); Calcium 8.2 mg/dl (8.6-10.3); Est GFR (African American) 129.5 ml/min; Est GFR (Non-African American) 111.7 ml/min; Globulin 2.4 gm/dl (2.5-4.0); Potassium 3.3 mmol/L (3.5-5.1); Total Protein 5.6 gm/dl (6.0-8.3)
[2022-11-13] MEDS: NICOTINE 14 MG/24 HR PATCH TD SCH (07:19)
[2022-11-13] MEDS: ATORVASTATIN 40 MG TAB PO SCH (07:20)
[2022-11-13] MEDS: buPROPion XL 150 MG TABCR PO SCH (07:20)
[2022-11-13] MEDS: PANTOprazole 40 MG TAB PO SCH (07:20)
[2022-11-13] MEDS: LORazepam 1 MG TAB PO PRN ×3 (07:21→21:37)
[2022-11-13] MEDS: LOPERAMIDE HCL 2 MG CAP PO PRN (07:21)
[2022-11-13] MEDS ORDERED: POTASSIUM CHLORIDE CRTAB 20 MEQ TABCR PO STA (09:33)
[2022-11-13] MEDS ORDERED: MoRPHine SULFATE 4 MG/ML 1 ML CARP\\VIAL IV PRN (17:48)
--- NOTE | 2022-11-13 17:52 | Hospitalist Progress Note ---
Date of Service November 13, 2022 Assessment & Plan (1) Diarrhea: Plan: Has been having diarrhea for about 2 months Has had colonoscopy about 2 to 3 months before did show polyps Increasing pain recently with ongoing diarrhea No abdominal distention, nausea and vomiting Stool test came back negative for any infection and C. difficile toxin is negative as well Awaiting GI input-appreciate input and recommendation for outpatient EGD and may be colonoscopy Diarrhea continues to be a problem Will start Imodium Diarrhea is minimally controlled-was advised to ambulate (2) Colitis: Plan: CT of the abdomen pelvis did show nonspecific colitis Has been started on intravenous Zosyn GI has been consulted Clinically not any better No abdominal distention, no fever or chills. No nausea no vomiting We will continue current antibiotic Abdominal pain is persisting with generalized-we will repeat CT scan of the abdomen pelvis (3) Abdominal pain: Plan: Increasing abdominal pain Abdomen remains soft Crying with pain Has been getting morphine 4 mg every 4 hours as needed Getting dicyclomine as well Pain is reasonably controlled with morphine Started with oral oxycodone and intravenous morphine in the preparation for discharge in a day or 2 (4) Hyperlipidemia: Plan: Has been getting statin (5) GERD (gastroesophageal reflux disease): Plan: PPI (6) LINUS (generalized anxiety disorder): Plan: Has been getting bupropion (7) Recurrent depression: Plan: Has been on quetiapine and bupropion DVT prophylaxis Subcu Lovenox CODE STATUS Full Admission and Anticipated Discharge Date Admission Date: November 12, 2022 Subjective 11/11/2022 The patient was seen and examined in medical floor and in the COVID room He has been complaining of diarrhea which has been ongoing for about 2 months His abdominal pain and diarrhea got worse for the last day or 2 and he was brought into the emergency room No fever and or chills and the CT scan of the abdomen pelvis did show nonspecific colitis 11/12/2022 The patient was seen and examined in medical floor and in the COVID room He complains today of severe abdominal pain with profuse diarrhea Has had 2 episodes of blood with the diarrhea Denies any fever and or chills 11/13/2022 The patient was seen and examined in medical floor and in the COVID room His diarrhea seems to be improving and the pain is reasonably controlled with current medication Still complains a lot of pain in the abdomen with minimal movement No nausea or vomiting Review of Systems Review of Systems: All systems reviewed and are unremarkable except as noted below Gastrointestinal: Increasing abdominal pain with diarrhea. No abdominal distention Physical Exam Physical Exam: Lying in bed with pain Constitutional: + ill appearing and average body habitus Eyes: PERRL, conjunctivae normal, anicteric sclerae ENMT: external ear and nose normal, oropharynx normal Neck: trachea midline, no thyromegaly Respiratory: + respiratory distress Auscultation: lungs clear to auscultation bilaterally Cardiovascular: Rate/Rhythm: regular rate and regular rhythm Heart Sounds: normal S1 and normal S2; no murmur Extremities: no edema Gastrointestinal (Abdomen): Inspection/Auscultation: normal bowel sounds; abdomen not distended Percussion/Palpation: + abdomen tender (Tender all over. No guarding and no rigidity) and abdomen soft Abdomen remains minimally distended and very tender Musculoskeletal: No acute arthritis involving any joint Neurologic: normal touch/pain/proprioception and moves all extremities; no focal motor deficits Psychiatric: A+Ox3, euthymic affect Lymphatic: no cervical or axillary lymphadenopathy Results & Data Results & Data Vital Signs (Past 12 Hours) Vital Signs Temp Pulse Resp BP Pulse Ox O2 Del Method 11/13/22 07:16 36.4 C L 66 14 129/86 94 Room Air Laboratory Results Short CBC 11/13/22 Range/Units 05:37 WBC 9.90 (4.8-10.8) K/ul Hgb 16.0 (14.0-18.0) g/dl Hct 45.5 (42.0-52.0) % Plt Count 192 (130-400) K/uL BMP 11/13/22 05:37 Sodium 141 Potassium 3.3 L Chloride 109 H Carbon Dioxide 27 BUN 5 L Creatinine 0.71 Glucose 101 H Calcium 8.2 L Liver Function 11/13/22 Range/Units 05:37 Total Bilirubin 0.5 (0.2-1.0) mg/dl AST 9 L (13-39) U/L ALT 5 L (7-52) U/L Alkaline Phosphatase 64 (34-104) U/L Albumin 3.2 L (3.4-5.0) gm/dl Medications Administered Current Inpatient Medications Acetaminophen (Acetaminophen 325 Mg Tab) 650 mg PO Q4H PRN PRN Reason: pain/fever Stop: 12/10/22 23:13 Atorvastatin Calcium (Atorvastatin 40 Mg Tab) 40 mg PO DAILY [facility] Stop: 12/11/22 08:59 Last Admin: 11/13/22 07:20 Dose: 40 mg Bupropion HCl (Bupropion Xl 150 Mg Tabcr) 150 mg PO DAILY [facility] Stop: 12/11/22 08:59 Last Admin: 11/13/22 07:20 Dose: 150 mg Enoxaparin Sodium (Enoxaparin Inj 40 Mg/0.4 Ml Syr) 40 mg SQ HS [facility] Stop: 12/10/22 23:13 Last Admin: 11/12/22 20:20 Dose: 40 mg Dextrose/Sodium Chloride (D5w And 1/2nss) 1,000 mls @ 125 mls/hr IV .Q8H [facility] Stop: 12/10/22 23:13 Last Admin: 11/13/22 15:16 Dose: 125 mls/hr Piperacillin Sod/Tazobactam (Sod 3.375 gm/ Dextrose) 115 mls @ 28.75 mls/hr IV Q8H [facility]; Protocol Stop: 11/21/22 05:59 Last Infusion: 11/13/22 17:20 Dose: Infused Loperamide HCl (Loperamide Hcl 2 Mg Cap) 2 mg PO Q3H PRN PRN Reason: Diarrhea Stop: 12/12/22 15:18 Last Admin: 11/13/22 07:21 Dose: 2 mg Lorazepam (Lorazepam 1 Mg Tab) 1 mg PO TID PRN PRN Reason: Anxiety Stop: 12/11/22 00:03 Last Admin: 11/13/22 15:15 Dose: 1 mg Miscellaneous (Remove Nicoderm Patch) 1 each N/A DAILY@0859 [facility] Stop: 12/11/22 08:58 Last Admin: 11/13/22 07:19 Dose: 1 each Morphine Sulfate (Morphine Sulfate 4 Mg/Ml 1 Ml Carp\Vial) 4 mg IV Q8H PRN PRN Reason: Pain Stop: 11/25/22 10:57 Nicotine (Nicotine 14 Mg/24 Hr Patch) 14 mg TD QAM [facility] Stop: 12/11/22 00:19 Last Admin: 11/13/22 07:19 Dose: 14 mg Ondansetron HCl (Ondansetron Inj 2 Mg/Ml 2 Ml Vial) 4 mg IV Q6H PRN PRN Reason: Nausea Stop: 12/10/22 23:13 Last Admin: 11/13/22 15:16 Dose: 4 mg Oxycodone HCl (Oxycodone Hcl Ir 5 Mg Tab (Immediate Release)) 5 mg PO Q6H PRN PRN Reason: Pain Stop: 11/27/22 17:46 Pantoprazole Sodium (Pantoprazole 40 Mg Tab) 40 mg PO DAILY [facility] Stop: 12/11/22 08:59 Last Admin: 11/13/22 07:20 Dose: 40 mg Quetiapine Fumarate (Quetiapine Fumarate 200 Mg Tab) 400 mg PO [facility] Stop: 12/11/22 00:29 Last Admin: 11/12/22 20:19 Dose: 400 mg
[2022-11-13] MEDS: QUEtiapine FUMARATE 200 MG TAB PO SCH (21:37)
[2022-11-13] MEDS: ENOXAPARIN INJ 40 MG/0.4 ML SYR SQ SCH (21:37)
[2022-11-13] MEDS: oxyCODONE HCL IR 5 MG TAB (IMMEDIATE RELEASE) PO PRN (21:37)
--- NOTE | 2022-11-14 00:53 | CT Scan Report ---
Exam(s): CT ABDOMEN + PELVIS Without Contrast EXAM: CT Abdomen and Pelvis Without Intravenous Contrast CLINICAL HISTORY: Reason for exam: R/O Perforation. TECHNIQUE: Axial computed tomography images of the abdomen and pelvis without intravenous contrast. CTDI is 10.58 mGy and DLP is 551.11 mGy-cm. Automated exposure control was utilized for the study. A dose lowering technique was utilized adhering to the principles of ALARA. COMPARISON: No relevant prior studies available. FINDINGS: Lung bases: Unremarkable. No mass. No consolidation. ABDOMEN: Liver: Unremarkable. Gallbladder and bile ducts: Unremarkable. No calcified stones. No ductal dilation. Pancreas: Unremarkable. No ductal dilation. Spleen: Unremarkable. No splenomegaly. Adrenals: Unremarkable. No mass. Kidneys and ureters: There are low-density lesions throughout both kidneys which are incompletely evaluated on this study. These are better visualized on the recent contrast-enhanced CT. There are punctate nonobstructing bilateral intrarenal calculi. Stomach and bowel: Unremarkable. No obstruction. No mucosal thickening. PELVIS: Appendix: No findings to suggest acute appendicitis. Bladder: Unremarkable. No stones. Reproductive: Unremarkable as visualized. ABDOMEN and PELVIS: Intraperitoneal space: Unremarkable. No free air. No significant fluid collection. Bones/joints: No acute fracture. No dislocation. Soft tissues: Unremarkable. Vasculature: There is diffuse atherosclerotic calcification of the aorta and its major branch vessels. No abdominal aortic aneurysm. Lymph nodes: Unremarkable. No enlarged lymph nodes. IMPRESSION: No acute findings in the abdomen or pelvis. Electronically signed by: Jered Wells MD 11/14/22 00:52 AM
[2022-11-14] MEDS: D5W AND 1/2NSS 1,000 ML IV SCH ×3 (02:12→20:27)
[2022-11-14] MEDS: PIPERACILLIN/TAZOBACTAM 3.375 GM in DEXTROSE 5% 100 ML IV SCH ×3 (05:14→22:12)
[2022-11-14] MEDS: oxyCODONE HCL IR 5 MG TAB (IMMEDIATE RELEASE) PO PRN ×3 (08:08→20:28)
[2022-11-14] MEDS: ONDANSETRON INJ 2 MG/ML 2 ML VIAL IV PRN ×2 (08:08→20:28)
[2022-11-14] MEDS: buPROPion XL 150 MG TABCR PO SCH (08:18)
[2022-11-14] MEDS: PANTOprazole 40 MG TAB PO SCH (08:18)
[2022-11-14] MEDS: ATORVASTATIN 40 MG TAB PO SCH (08:18)
[2022-11-14] MEDS: NICOTINE 14 MG/24 HR PATCH TD SCH (08:20)
[2022-11-14] MEDS: LORazepam 1 MG TAB PO PRN ×2 (08:34→15:56)
[2022-11-14 08:57] LABS: Basophils # (auto) 0.05 K/uL (0-0.2); Basophils % (auto) 0.6 %; Eosinophils # (auto) 0.27 K/uL (0-0.50); Eosinophils % (auto) 3.1 %; Hematocrit (blood only) 45.5 % (42.0-52.0); Hemoglobin 16.3 g/dl (14.0-18.0); Immature Granulocytes # (auto) 0.04 K/uL (0.01-0.20); Immature Granulocytes % (auto) 0.5 %; Lymphocytes # (auto) 2.37 K/uL (1.2-3.4); Lymphocytes % (auto) 26.9 %; Mean Corpuscular Hemoglobin 31.8 pg (25.0-34.0); Mean Corpuscular Hgb Conc 35.8 g/dL (32.0-36.0); Mean Corpuscular Volume 88.9 fL (80.0-100.0); Mean Platelet Volume 10.8 fL (9.4-12.4); Monocytes # (auto) 0.74 K/uL (0.11-0.59); Monocytes % (auto) 8.4 %; Neutrophils # (auto) 5.33 K/uL (1.40-6.50); Neutrophils % (auto) 60.5 %; Platelet Count 200 K/uL (130-400); RDW Coefficient of Variation 11.1 % (11.5-14.5); RDW Standard Deviation 35.8 fL (36.4-46.3); Red Blood Count 5.12 M/uL (4.70-6.10)
[2022-11-14 09:13] LABS: BUN Creatinine Ratio 5.6 (10-20); Calcium 8.5 mg/dl (8.6-10.3); Est GFR (African American) 129.5 ml/min; Est GFR (Non-African American) 111.7 ml/min; Potassium 3.3 mmol/L (3.5-5.1)
[2022-11-14] MEDS ORDERED: POTASSIUM CHLORIDE CRTAB 20 MEQ TABCR PO ONE (09:21)
[2022-11-14] MEDS ORDERED: MoRPHine SULFATE 2 MG/ML CARP IV PRN (09:23)
[2022-11-14] MEDS: LOPERAMIDE HCL 2 MG CAP PO PRN (15:55)
[2022-11-14] MEDS: DICYCLOMINE HCL 10 MG CAP PO SCH ×2 (15:56→20:33)
[2022-11-14] MEDS: MoRPHine SULFATE 2 MG/ML CARP IV PRN ×2 (16:11→22:12)
--- NOTE | 2022-11-14 16:36 | Hospitalist Progress Note ---
Date of Service November 14, 2022 Assessment & Plan (1) Diarrhea: Plan: Profuse nonbloody diarrhea Likely secondary to colitis due to COVID-19 H/O chronic diarrhea as well--unclear etiology --CT ABD:There is evidence of a mild nonspecific colitis. Clinical correlation will be required. Bilateral nephrolithiasis. There are numerous small bilateral renal cysts. --Repeat CT ABD:No acute findings in the abdomen or pelvis. -- Stool PCR, stool for C. difficile negative --We will recheck stool studies --Appreciate GI input --- Will eventually need EGD/colonoscopy as outpatient --Empirically on Zosyn --Imodium, Bentyl as needed --Check lipase levels -- Advance diet as tolerated --Minimize narcotic pain medications as able Gentle IV fluids COVID-19 infection Saturating well on room air Conservative management (2) Colitis: Plan: Management as above (3) Abdominal pain: Plan: Management as above (4) Hyperlipidemia: Plan: On Lipitor (5) GERD (gastroesophageal reflux disease): Plan: On Protonix (6) LINUS (generalized anxiety disorder): Plan: Continue home medications (7) Recurrent depression: Plan: on quetiapine and bupropion DVT Px SQ Lovenox CODE STATUS Full Code Admission and Anticipated Discharge Date Admission Date: November 12, 2022 Subjective Patient is seen and examined at bedside States having ongoing diarrhea associated with abdominal pain Reports minimal cough which he attributes to be chronic Denies any dyspnea, chest pain, dizziness, vomiting Discussed with GI today No other complaints Review of Systems Review of Systems: All systems reviewed & are unremarkable except as noted in Subjective Physical Exam Physical Exam: Physical Exam: Vitals signs as noted above General Appearance:Moderately built and nourished, no apparent distress Head: normocephalic, Atraumatic Eyes: normal inspection, EOMI Neck: supple, Trachea midline Respiratory/Chest:Decreased breath sounds, CTA, No accessory muscle use Cardiovascular: S1, S2, No murmur Abdomen/GI:Soft, general tender, no guarding or rigidity, bowel sounds present Extremities/Musculoskeletal:normal inspection, no edema Neurologic/Psych:AAOX3, grossly no focal neurological deficits Skin: normal color, warm Results & Data Results & Data Vital Signs (Past 12 Hours) Vital Signs Temp Pulse Resp BP Pulse Ox O2 Del Method 11/14/22 15:19 36.6 C 92 H 14 139/90 98 Room Air 11/14/22 07:42 36.7 C 75 14 126/85 96 Room Air
[2022-11-14 17:37] LABS: Adenovirus F 40/41 PCR Not Detected (NotDetected); Astrovirus PCR Not Detected (NotDetected); Campylobacter PCR Not Detected (NotDetected); Cryptosporidium PCR Not Detected (NotDetected); Cyclospora cayetanensis PCR Not Detected (NotDetected); Entamoeba histolytica PCR Not Detected (NotDetected); Enteroaggregative E.coli(EAEC) Not Detected (NotDetected); Enteropathogenic E.coli (EPEC) Not Detected (NotDetected); Enterotoxigenic E.coli (ETEC) Not Detected (NotDetected); Giardia lamblia PCR Not Detected (NotDetected); Norovirus GI/GII PCR Not Detected (NotDetected); Plesiomonas shigelloides PCR Not Detected (NotDetected); Rotavirus A PCR Not Detected (NotDetected); Salmonella PCR Not Detected (NotDetected); Sapovirus PCR Not Detected (NotDetected); Shiga-like Toxin E.coli (STEC) Not Detected (NotDetected); Shigella/Enteroinvasive E.coli Not Detected (NotDetected); Vibrio cholerae PCR Not Detected (NotDetected); Vibrio species PCR Not Detected (NotDetected); Yersinia enterocolitica PCR Not Detected (NotDetected)
[2022-11-14] MEDS: ENOXAPARIN INJ 40 MG/0.4 ML SYR SQ SCH (20:34)
[2022-11-14] MEDS: QUEtiapine FUMARATE 200 MG TAB PO SCH (20:35)
[2022-11-15] MEDS: LORazepam 1 MG TAB PO PRN ×3 (00:02→17:11)
[2022-11-15] MEDS: ALUMINUM/MAGNESIUM/SIMETH (MAALOX MAX) 30 ML UDC PO PRN ×4 (00:04→23:20)
[2022-11-15] MEDS: MoRPHine SULFATE 2 MG/ML CARP IV PRN ×3 (05:53→23:20)
[2022-11-15] MEDS: PIPERACILLIN/TAZOBACTAM 3.375 GM in DEXTROSE 5% 100 ML IV SCH (05:53)
[2022-11-15 07:18] LABS: Calcium 8.7 mg/dl (8.6-10.3); Magnesium 1.7 mg/dl (1.7-2.4); Potassium 3.2 mmol/L (3.5-5.1)
[2022-11-15 07:24] LABS: BUN Creatinine Ratio 8.3 (10-20); Creatinine Clr Calc Pharmacy 124.3 ml/min; Est GFR (African American) 128.7 ml/min; Est GFR (Non-African American) 111.1 ml/min
[2022-11-15] MEDS ORDERED: MoRPHine SULFATE 2 MG/ML CARP IV PRN (08:05)
[2022-11-15] MEDS ORDERED: POTASSIUM CHLORIDE CRTAB 20 MEQ TABCR PO ONE (08:07)
[2022-11-15] MEDS: ATORVASTATIN 40 MG TAB PO SCH (08:16)
[2022-11-15] MEDS: oxyCODONE HCL IR 5 MG TAB (IMMEDIATE RELEASE) PO PRN ×3 (08:16→22:26)
[2022-11-15] MEDS: DICYCLOMINE HCL 10 MG CAP PO SCH ×2 (08:16→21:23)
[2022-11-15] MEDS: buPROPion XL 150 MG TABCR PO SCH (08:16)
[2022-11-15] MEDS: ADVANCED PROBIOTIC 1250 MG CAPSULE PO SCH (08:16)
[2022-11-15] MEDS: ONDANSETRON INJ 2 MG/ML 2 ML VIAL IV PRN ×3 (08:17→23:21)
[2022-11-15] MEDS: PANTOprazole 40 MG TAB PO SCH (08:17)
[2022-11-15] MEDS: NICOTINE 14 MG/24 HR PATCH TD SCH (08:17)
[2022-11-15] MEDS: LACTATED RINGER'S 1,000 ML IV SCH (10:12)
--- NOTE | 2022-11-15 14:10 | Hospitalist Progress Note ---
Date of Service November 15, 2022 Assessment & Plan (1) Diarrhea: Plan: Profuse nonbloody diarrhea Likely secondary to colitis due to COVID-19 H/O chronic diarrhea as well--unclear etiology --CT ABD:There is evidence of a mild nonspecific colitis. Clinical correlation will be required. Bilateral nephrolithiasis. There are numerous small bilateral renal cysts. --Repeat CT ABD:No acute findings in the abdomen or pelvis. -- Stool PCR, stool for C. difficile negative --Repeat stool studies negative as well --Appreciate GI input - may trial cholestyramine --- Will eventually need EGD/colonoscopy as outpatient --Discontinued Zosyn as stool cx remain negative --Imodium, Bentyl as needed --Check lipase levels -- Advance diet as tolerated --Minimize narcotic pain medications as able Gentle IV fluids COVID-19 infection Saturating well on room air Conservative management (2) Colitis: Plan: Management as above (3) Abdominal pain: Plan: Management as above (4) Hyperlipidemia: Plan: On Lipitor (5) GERD (gastroesophageal reflux disease): Plan: On Protonix (6) LINUS (generalized anxiety disorder): Plan: Continue home medications (7) Recurrent depression: Plan: on quetiapine and bupropion DVT Px SQ Lovenox CODE STATUS Full Code I spent a total of 35 minutes coordinating, documenting, and providing care for this patient excluding time spent in the performance of separately billed services. Admission and Anticipated Discharge Date Admission Date: November 12, 2022 Supervising Physician Co-Signing Physician Notes Patient is seen and examined at bedside. Diarrhea slowly improving. Had 2 bowel movements today. Abdominal pain improving as well. No new complaints. Saturating well on room air. Abdominal exam soft, mild voluntary guarding, chest exam clear to auscultation. Will minimize pain medications as able. Lipase levels within normal limits. IV antibiotics discontinued. Continue probiotics, Imodium, Bentyl. Will need colonoscopy as outpatient. I personally reviewed the record. Patient is interviewed and examined at bedside. Patient's care is coordinated with Rehana Pinedo PA-C. Please refer to the documentation above for details of patient's presentation and for discussion of other issues. Subjective Patient is seen and examined at bedside. Has ongoing abdominal pain that is in lower abdomen with some radiation up on his lateral sides. Still having diarrhea, but it is decreased in frequency. Denies any respiratory symptoms that are new in setting of COVID. Denies any dyspnea, chest pain, dizziness, vomiting Review of Systems Review of Systems: At least ten systems reviewed and negative except as noted in the HPI. Physical Exam Physical Exam: Gen: WD/WN, NAD, lying in bed, A&Ox3 HEENT: Normocephalic, atraumatic, conjunctivae moist, sclerae anicteric, mucous membranes moist Lung: Clear to Auscultation bilaterally, no wheezes/rales/rhonchi Heart: Regular rate, regular rhythm, no murmurs, rubs, or gallops Abdomen: Soft, lower abdominal TTP, ND +BS x 4 Extremities: no edema Skin: Warm, no rash Results & Data Results & Data Vital Signs (Past 12 Hours) Vital Signs Temp Pulse Resp BP Pulse Ox O2 Del Method 11/15/22 08:29 36.6 C 76 16 120/78 96 Room Air Laboratory Results BMP 11/15/22 06:17 Sodium 142 Potassium 3.2 L Chloride 107 Carbon Dioxide 29 BUN 6 Creatinine 0.72 Glucose 81 Calcium 8.7 Diagnostic Findings Abdomen/Pelvis CT 11/10/22 17:32 CT SCAN OF THE ABDOMEN AND PELVIS WITH IV CONTRAST CLINICAL HISTORY: Generalized abdominal pain. Nausea and diarrhea. COMPARISON STUDY: No priors. TECHNIQUE: Following the IV administration of 87 cc of Optiray 350, CT scan of the abdomen and pelvis is performed from the lung bases to the proximal femora. Images are reviewed in the axial, sagittal, and coronal planes. IV contrast was administered without complication. A dose lowering technique was utilized adhering to the principles of ALARA. CT DOSE: 526.82 mGy.cm FINDINGS: Lung bases: The heart is normal in size and without pericardial effusion. The lung bases are clear. Liver: The contrast-enhanced liver is normal in size, contour, and attenuation. There is no intrahepatic biliary ductal dilatation. The hepatic veins and portal veins are patent. Gallbladder: Unremarkable. Spleen: Normal in size and attenuation. Pancreas: Unremarkable. Adrenal glands: Unremarkable. Kidneys: The contrast enhanced kidneys are normal in size and without hydronephrosis. The kidneys enhance symmetrically. There are at least 2 nonobstructing calculi seen in both kidneys. These measure up to 4 mm. No ureteral stone is identified. There are numerous small bilateral renal cysts (greater than 10 on the right and at least 7 on the left). The largest cysts are in the right upper pole and measure up to 2.3 cm. Abdominal vasculature: The abdominal aorta is normal in course and caliber noting scattered foci of atherosclerotic calcification. Bowel: There is no bowel obstruction. Liquid stool seen throughout the colon. Mild wall thickening is seen involving the left colon with faint surrounding infiltration. The appendix is well-visualized and normal. Peritoneum: There is no intraperitoneal free air or abdominal ascites. Lymphadenopathy: None. Pelvic viscera: The bladder is distended but otherwise normal in appearance. The prostate and seminal vesicles are normal as visualized. Skeletal structures: No lytic or blastic lesions are seen. There is a mild chronic superior endplate compression deformity of L1. IMPRESSION: 1. There is evidence of a mild nonspecific colitis. Clinical correlation will be required. 2. Bilateral nephrolithiasis. 3. There are numerous small bilateral renal cysts. 4. Additional findings as above. ACT 112: Negative or not required by law. Electronically signed by: Driss Gonzales M.D. 11/10/2022 7:25 PM Abdomen/Pelvis CT 11/13/22 17:52 Exam(s): CT ABDOMEN + PELVIS Without Contrast EXAM: CT Abdomen and Pelvis Without Intravenous Contrast CLINICAL HISTORY: Reason for exam: R/O Perforation. TECHNIQUE: Axial computed tomography images of the abdomen and pelvis without intravenous contrast. CTDI is 10.58 mGy and DLP is 551.11 mGy-cm. Automated exposure control was utilized for the study. A dose lowering technique was utilized adhering to the principles of ALARA. COMPARISON: No relevant prior studies available. FINDINGS: Lung bases: Unremarkable. No mass. No consolidation. ABDOMEN: Liver: Unremarkable. Gallbladder and bile ducts: Unremarkable. No calcified stones. No ductal dilation. Pancreas: Unremarkable. No ductal dilation. Spleen: Unremarkable. No splenomegaly. Adrenals: Unremarkable. No mass. Kidneys and ureters: There are low-density lesions throughout both kidneys which are incompletely evaluated on this study. These are better visualized on the recent contrast-enhanced CT. There are punctate nonobstructing bilateral intrarenal calculi. Stomach and bowel: Unremarkable. No obstruction. No mucosal thickening. PELVIS: Appendix: No findings to suggest acute appendicitis. Bladder: Unremarkable. No stones. Reproductive: Unremarkable as visualized. ABDOMEN and PELVIS: Intraperitoneal space: Unremarkable. No free air. No significant fluid collection. Bones/joints: No acute fracture. No dislocation. Soft tissues: Unremarkable. Vasculature: There is diffuse atherosclerotic calcification of the aorta and its major branch vessels. No abdominal aortic aneurysm. Lymph nodes: Unremarkable. No enlarged lymph nodes. IMPRESSION: No acute findings in the abdomen or pelvis. Electronically signed by: Jered Wells MD 11/14/22 00:52 AM
[2022-11-15] MEDS: QUEtiapine FUMARATE 200 MG TAB PO SCH (21:23)
[2022-11-15] MEDS: ENOXAPARIN INJ 40 MG/0.4 ML SYR SQ SCH (21:23)
[2022-11-16] MEDS: LORazepam 1 MG TAB PO PRN ×3 (01:26→17:25)
[2022-11-16] MEDS: LACTATED RINGER'S 1,000 ML IV SCH (05:44)
[2022-11-16] MEDS: oxyCODONE HCL IR 5 MG TAB (IMMEDIATE RELEASE) PO PRN ×3 (05:44→18:15)
[2022-11-16 06:54] LABS: BUN Creatinine Ratio 8.3 (10-20); Calcium 8.8 mg/dl (8.6-10.3); Creatinine Clr Calc Pharmacy 149.1 ml/min; Est GFR (African American) 138.8 ml/min; Est GFR (Non-African American) 119.7 ml/min; Magnesium 1.8 mg/dl (1.7-2.4); Potassium 3.6 mmol/L (3.5-5.1)
[2022-11-16] MEDS: ONDANSETRON INJ 2 MG/ML 2 ML VIAL IV PRN ×3 (08:52→21:19)
[2022-11-16] MEDS: MoRPHine SULFATE 2 MG/ML CARP IV PRN ×3 (08:53→21:19)
[2022-11-16] MEDS: ALUMINUM/MAGNESIUM/SIMETH (MAALOX MAX) 30 ML UDC PO PRN ×3 (08:53→21:19)
[2022-11-16] MEDS: NICOTINE 14 MG/24 HR PATCH TD SCH (08:55)
[2022-11-16] MEDS: DICYCLOMINE HCL 10 MG CAP PO SCH ×2 (08:55→21:18)
[2022-11-16] MEDS: buPROPion XL 150 MG TABCR PO SCH (08:56)
[2022-11-16] MEDS: ATORVASTATIN 40 MG TAB PO SCH (08:56)
[2022-11-16] MEDS: PANTOprazole 40 MG TAB PO SCH (08:56)
[2022-11-16] MEDS: ADVANCED PROBIOTIC 1250 MG CAPSULE PO SCH (08:56)
[2022-11-16] MEDS: LOPERAMIDE HCL 2 MG CAP PO PRN (15:01)
--- NOTE | 2022-11-16 19:05 | Hospitalist Progress Note ---
Date of Service November 16, 2022 Assessment & Plan (1) Diarrhea: Plan: Profuse nonbloody diarrhea Likely secondary to colitis due to COVID-19 H/O chronic diarrhea as well--unclear etiology ? Irritable bowel disease --CT ABD:There is evidence of a mild nonspecific colitis. Clinical correlation will be required. Bilateral nephrolithiasis. There are numerous small bilateral renal cysts. --Repeat CT ABD:No acute findings in the abdomen or pelvis. -- Stool PCR, stool for C. difficile negative --Repeat stool studies negative as well --Appreciate GI input - may trial cholestyramine --- Will eventually need EGD/colonoscopy as outpatient --Discontinued Zosyn as stool cx remain negative --Imodium, Bentyl as needed --lipase normal Tolerating regular diet --Minimize narcotic pain medications as able Gentle IV fluids COVID-19 infection Saturating well on room air Conservative management (2) Colitis: Plan: Management as above (3) Abdominal pain: Plan: Management as above (4) Hyperlipidemia: Plan: On Lipitor (5) GERD (gastroesophageal reflux disease): Plan: On Protonix (6) LINUS (generalized anxiety disorder): Plan: Continue home medications (7) Recurrent depression: Plan: on quetiapine and bupropion DVT Px SQ Lovenox CODE STATUS Full Code Admission and Anticipated Discharge Date Admission Date: November 12, 2022 Subjective Patient is seen and examined at bedside Reports having 2 loose bowel movements today Tolerating diet Abdominal pain better Was concerned about being discharged early from hospital Denies any chest pain, dyspnea, dizziness, nausea Minimal intermittent cough Saturating well on room air Review of Systems Review of Systems: All systems reviewed & are unremarkable except as noted in Subjective Physical Exam Physical Exam: Physical Exam: Vitals signs as noted above General Appearance:Moderately built and nourished, no apparent distress Head: normocephalic, Atraumatic Eyes: normal inspection, EOMI Neck: supple, Trachea midline Respiratory/Chest:Decreased breath sounds, CTA, No accessory muscle use Cardiovascular: S1, S2, No murmur Abdomen/GI:Soft, general tender, no guarding or rigidity, bowel sounds present Extremities/Musculoskeletal:normal inspection, no edema Neurologic/Psych:AAOX3, grossly no focal neurological deficits Skin: normal color, warm Results & Data Results & Data Vital Signs (Past 12 Hours) Vital Signs Temp Pulse Resp BP Pulse Ox O2 Del Method 11/16/22 14:09 36.7 C 85 18 131/83 97 Room Air 11/16/22 08:03 36.6 C 70 18 120/79 95 Room Air Laboratory Results [facility] 11/16/22 05:58 Sodium 140 Potassium 3.6 Chloride 107 Carbon Dioxide 28 BUN 5 L Creatinine 0.60 Glucose 75 Calcium 8.8
[2022-11-16] MEDS: ENOXAPARIN INJ 40 MG/0.4 ML SYR SQ SCH (21:18)
[2022-11-16] MEDS: QUEtiapine FUMARATE 200 MG TAB PO SCH (21:18)
[2022-11-16] MEDS: FAMOTIDINE 10 MG TABLET PO PRN (21:48)
[2022-11-17] MEDS: oxyCODONE HCL IR 5 MG TAB (IMMEDIATE RELEASE) PO PRN ×4 (00:46→22:34)
[2022-11-17 06:57] LABS: BUN Creatinine Ratio 11.1 (10-20); Est GFR (Non-African American) 117.4 ml/min; Potassium 3.6 mmol/L (3.5-5.1)
[2022-11-17] MEDS: ALUMINUM/MAGNESIUM/SIMETH (MAALOX MAX) 30 ML UDC PO PRN ×3 (08:37→21:27)
[2022-11-17] MEDS: MoRPHine SULFATE 2 MG/ML CARP IV PRN ×3 (08:38→21:28)
[2022-11-17] MEDS: LORazepam 1 MG TAB PO PRN ×2 (08:38→21:28)
[2022-11-17] MEDS: ONDANSETRON INJ 2 MG/ML 2 ML VIAL IV PRN ×3 (08:38→22:33)
[2022-11-17] MEDS: DICYCLOMINE HCL 10 MG CAP PO SCH ×2 (08:39→22:34)
[2022-11-17] MEDS: ADVANCED PROBIOTIC 1250 MG CAPSULE PO SCH (08:39)
[2022-11-17] MEDS: ATORVASTATIN 40 MG TAB PO SCH (08:39)
[2022-11-17] MEDS: PANTOprazole 40 MG TAB PO SCH (08:39)
[2022-11-17] MEDS: NICOTINE 14 MG/24 HR PATCH TD SCH (08:39)
[2022-11-17] MEDS: buPROPion XL 150 MG TABCR PO SCH (08:39)
[2022-11-17] MEDS ORDERED: CHOLESTYRAMINE LIGHT 4 GM PKT PO PRN (14:33)
--- NOTE | 2022-11-17 18:06 | Hospitalist Progress Note ---
Date of Service November 17, 2022 Assessment & Plan (1) Diarrhea: Plan: Profuse nonbloody diarrhea Likely secondary to colitis due to COVID-19 H/O chronic diarrhea as well--unclear etiology ? Irritable bowel disease --CT ABD:There is evidence of a mild nonspecific colitis. Clinical correlation will be required. Bilateral nephrolithiasis. There are numerous small bilateral renal cysts. --Repeat CT ABD:No acute findings in the abdomen or pelvis. -- Stool PCR, stool for C. difficile negative --Repeat stool studies negative as well --Appreciate GI input --- Will eventually need EGD/colonoscopy as outpatient --Discontinued Zosyn as stool cx remain negative --Imodium, Bentyl as needed --lipase normal Tolerating regular diet --Minimize narcotic pain medications as able Discontinue IV fluids Trial cholestyramine Clinically improved COVID-19 infection Saturating well on room air Conservative management (2) Colitis: Plan: Management as above (3) Abdominal pain: Plan: Management as above (4) Hyperlipidemia: Plan: On Lipitor (5) GERD (gastroesophageal reflux disease): Plan: On Protonix (6) LINUS (generalized anxiety disorder): Plan: Continue home medications (7) Recurrent depression: Plan: on quetiapine and bupropion DVT Px SQ Lovenox CODE STATUS Full Code Admission and Anticipated Discharge Date Admission Date: November 12, 2022 Subjective Patient is seen and examined at bedside States feeling better today Reports 2 loose BMs today No new complaints Tolerating diet Denies any chest pain, dyspnea, dizziness, nausea Review of Systems Review of Systems: All systems reviewed & are unremarkable except as noted in Subjective Physical Exam Physical Exam: Physical Exam: Vitals signs as noted above General Appearance:Moderately built and nourished, no apparent distress Head: normocephalic, Atraumatic Eyes: normal inspection, EOMI Neck: supple, Trachea midline Respiratory/Chest:Decreased breath sounds, CTA, No accessory muscle use Cardiovascular: S1, S2, No murmur Abdomen/GI:Soft, general tender, no guarding or rigidity, bowel sounds present Extremities/Musculoskeletal:normal inspection, no edema Neurologic/Psych:AAOX3, grossly no focal neurological deficits Skin: normal color, warm Results & Data Results & Data Vital Signs (Past 12 Hours) Vital Signs Temp Pulse Resp BP Pulse Ox O2 Del Method 11/17/22 14:52 36.6 C 80 16 133/90 96 Room Air 11/17/22 07:17 36.6 C 80 16 121/83 94 Room Air Laboratory Results BMP 11/17/22 05:29 Sodium 142 Potassium 3.6 Chloride 107 Carbon Dioxide 27 BUN 7 Creatinine 0.63 Glucose 78 Calcium 9.0
[2022-11-17] MEDS: ENOXAPARIN INJ 40 MG/0.4 ML SYR SQ SCH (21:27)
[2022-11-17] MEDS: QUEtiapine FUMARATE 200 MG TAB PO SCH (21:28)
[2022-11-18] MEDS: oxyCODONE HCL IR 5 MG TAB (IMMEDIATE RELEASE) PO PRN ×2 (05:17→11:06)
[2022-11-18] MEDS: ALUMINUM/MAGNESIUM/SIMETH (MAALOX MAX) 30 ML UDC PO PRN (09:16)
[2022-11-18] MEDS: MoRPHine SULFATE 2 MG/ML CARP IV PRN (09:16)
[2022-11-18] MEDS: ONDANSETRON INJ 2 MG/ML 2 ML VIAL IV PRN (09:16)
[2022-11-18] MEDS: LORazepam 1 MG TAB PO PRN (09:16)
[2022-11-18] MEDS: PANTOprazole 40 MG TAB PO SCH (09:17)
[2022-11-18] MEDS: ATORVASTATIN 40 MG TAB PO SCH (09:17)
[2022-11-18] MEDS: ADVANCED PROBIOTIC 1250 MG CAPSULE PO SCH (09:17)
[2022-11-18] MEDS: NICOTINE 14 MG/24 HR PATCH TD SCH (09:17)
[2022-11-18] MEDS: DICYCLOMINE HCL 10 MG CAP PO SCH (09:17)
[2022-11-18] MEDS: buPROPion XL 150 MG TABCR PO SCH (09:17)
[2022-11-18] MEDS: FAMOTIDINE 10 MG TABLET PO PRN (11:06)
--- NOTE | 2022-11-18 12:15 | Hospitalist Progress Note ---
Date of Service November 18, 2022 Assessment & Plan (1) Diarrhea: Plan: Profuse nonbloody diarrhea Likely secondary to colitis due to COVID-19 H/O chronic diarrhea as well--unclear etiology ? Irritable bowel disease --CT ABD:There is evidence of a mild nonspecific colitis. Clinical correlation will be required. Bilateral nephrolithiasis. There are numerous small bilateral renal cysts. --Repeat CT ABD:No acute findings in the abdomen or pelvis. -- Stool PCR, stool for C. difficile negative --Repeat stool studies negative as well --Appreciate GI input --- Will eventually need EGD/colonoscopy as outpatient --Discontinued Zosyn as stool cx remain negative --Imodium, Bentyl as needed --lipase normal Tolerating regular diet --Minimize narcotic pain medications as able Discontinue IV fluids Diarrhea much improved Semiformed stool today Plan to discharge home today Advised to follow-up with GI as outpatient for colonoscopy COVID-19 infection Saturating well on room air Conservative management (2) Colitis: Plan: Management as above (3) Abdominal pain: Plan: Management as above (4) Hyperlipidemia: Plan: On Lipitor (5) GERD (gastroesophageal reflux disease): Plan: On Protonix (6) LINUS (generalized anxiety disorder): Plan: Continue home medications (7) Recurrent depression: Plan: on quetiapine and bupropion DVT Px SQ Lovenox CODE STATUS Full Code Admission and Anticipated Discharge Date Admission Date: November 12, 2022 Subjective Patient is seen and examined at bedside No new complaints Feels well Stool is semiformed today, had 1 BM today Tolerates diet Denies any chest pain, dyspnea, dizziness, nausea Prefers to be discharged home Review of Systems Review of Systems: All systems reviewed & are unremarkable except as noted in Subjective Physical Exam Physical Exam: Physical Exam: Vitals signs as noted above General Appearance:Moderately built and nourished, no apparent distress Head: normocephalic, Atraumatic Eyes: normal inspection, EOMI Neck: supple, Trachea midline Respiratory/Chest:Decreased breath sounds, CTA, No accessory muscle use Cardiovascular: S1, S2, No murmur Abdomen/GI:Soft, non tender, no guarding or rigidity, bowel sounds present Extremities/Musculoskeletal:normal inspection, no edema Neurologic/Psych:AAOX3, grossly no focal neurological deficits Skin: normal color, warm Results & Data Results & Data Vital Signs (Past 12 Hours) Vital Signs Temp Pulse Resp BP Pulse Ox O2 Del Method 11/18/22 07:58 36.6 C 85 16 126/85 96 Room Air
--- NOTE | 2022-11-18 13:16 | Discharge Summary ---
Date of Service November 18, 2022 Admission HPI Per Admitting Provider CHIEF COMPLAINT: Abdominal pain, chronic diarrhea. HISTORY OF PRESENT ILLNESS: This is a 46-year-old male with past medical history significant for hyperlipidemia, fatty liver, vitamin D deficiency, GERD, obesity, recurrent depression, history of suicide attempt, generalized anxiety disorder, tobacco use disorder, presents with severe abdominal pain, cramps in his abdomen, going into his rectal region, having diarrhea for several months and also currently is having some nausea and vomiting bringing just some foam, has some runny nose and cough. Denies any fevers. He also gets on and off chest pains, it is most likely gas pain coming from the stomach. Has some headache, some blurred visions. Has poor dentition. Has teeth aches and is supposed to see dentist next month and plan for tooth extraction as per patient.The pain is radiating to his right ear. He was also in [facility] in June. At that time, he complained of losing weight and bowel changes and was also found to have anal mass. 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 There is a plan for resection of the mass in January. Stool BioFire came back negative, but rapid COVID test came back positive. CT abdomen and pelvis is showing nonspecific colitis, hemodynamically stable. Admission Exam Per Admitting Provider PHYSICAL EXAMINATION: GENERAL: The patient is of moderate build, not in acute distress. VITAL SIGNS: Temperature 36.8, pulse 92, respiratory rate 20, blood pressure 138/82, oxygen 95% on room air. HEENT: Pupils equal, round, and reactive to light. Oral mucosa, poor dentition. NECK: No neck masses seen. CARDIOVASCULAR: S1 and S2 heard. Regular rate and rhythm. No murmur, no gallop. RESPIRATORY SYSTEM: Normal AP diameter. No accessory muscle use. No wheezing or crackles. ABDOMEN: Soft, bowel sounds present. Diffuse tenderness, guarding present, no distention. CENTRAL NERVOUS SYSTEM: Alert and oriented. Speech is clear. No facial droop. Obeys simple commands. Moves extremities. EXTREMITIES: No edema, no erythema. GASTROINTESTINAL: Visible mass in the anal region. Principal Diagnosis COVID-19 infection Chronic intractable diarrhea Colitis Discharge Data Allergies Allergy/AdvReac Type Severity Reaction Status Date / Time bee venom protein (honey bee) Allergy Unknown Verified 11/10/22 21:42 lactose AdvReac Mild Abdominal Verified 11/10/22 21:43 Pain Consultations 11/10/22 20:37 ED Decision to Admit Stat 11/11/22 08:00 Consult Gastroenterology Routine Procedures Performed Laboratory Results WBC 8.80 K/ul (4.8-10.8) 11/14/22 08:28 RBC 5.12 M/uL (4.70-6.10) 11/14/22 08:28 Hgb 16.3 g/dl (14.0-18.0) 11/14/22 08:28 POC Hgb 18.4 g/dl (14.0-18.0) H 11/10/22 17:59 Hct 45.5 % (42.0-52.0) 11/14/22 08:28 POC Hct 54 % (42-52) H 11/10/22 17:59 MCV 88.9 fL (80.0-100.0) 11/14/22 08:28 MCH 31.8 pg (25.0-34.0) 11/14/22 08:28 MCHC 35.8 g/dL (32.0-36.0) 11/14/22 08:28 RDW Std Deviation 35.8 fL (36.4-46.3) L 11/14/22 08:28 RDW Coeff of Calderon 11.1 % (11.5-14.5) L 11/14/22 08:28 Plt Count 200 K/uL (130-400) 11/14/22 08:28 MPV 10.8 fL (9.4-12.4) 11/14/22 08:28 Immature Gran % (Auto) 0.5 % 11/14/22 08:28 Neut % (Auto) 60.5 % 11/14/22 08:28 Lymph % (Auto) 26.9 % 11/14/22 08:28 Marshall % (Auto) 8.4 % 11/14/22 08:28 Eos % (Auto) 3.1 % 11/14/22 08:28 Baso % (Auto) 0.6 % 11/14/22 08:28 Neut # (Auto) 5.33 K/uL (1.40-6.50) 11/14/22 08:28 Lymph # (Auto) 2.37 K/uL (1.2-3.4) 11/14/22 08:28 Marshall # (Auto) 0.74 K/uL (0.11-0.59) H 11/14/22 08:28 Eos # (Auto) 0.27 K/uL (0-0.50) 11/14/22 08:28 Baso # (Auto) 0.05 K/uL (0-0.2) 11/14/22 08:28 Immature Gran # (Auto) 0.04 K/uL (0.01-0.20) 11/14/22 08:28 POC Sodium 141 mmol/L (135-144) 11/10/22 17:59 Sodium 142 mmol/L (136-145) 11/17/22 05:29 POC Potassium 3.7 mmol/L (3.3-5.0) 11/10/22 17:59 Potassium 3.6 mmol/L (3.5-5.1) 11/17/22 05:29 POC Chloride 105 mmol/L (101-112) 11/10/22 17:59 Chloride 107 mmol/L (98-107) 11/17/22 05:29 Carbon Dioxide 27 mmol/L (21-32) 11/17/22 05:29 POC Total CO2 20 mmol/L (24-31) L 11/10/22 17:59 Anion Gap 8 (3-11) 11/17/22 05:29 POC Anion Gap 20.0 mmol/L (16-25) 11/10/22 17:59 POC BUN 3 mg/dl (7-18) L 11/10/22 17:59 BUN 7 mg/dl (6-23) 11/17/22 05:29 Creatinine 0.63 mg/dl (0.6-1.4) 11/17/22 05:29 POC Creatinine 0.7 mg/dl (0.6-1.3) 11/10/22 17:59 Est Cr Clr Drug Dosing 142.0 ml/min 11/17/22 05:29 Est GFR ( Amer) 136.0 ml/min 11/17/22 05:29 Est GFR (Non-Af Amer) 117.4 ml/min 11/17/22 05:29 BUN/Creatinine Ratio 11.1 (10-20) 11/17/22 05:29 Glucose 78 mg/dl (70-99(Fasting)) 11/17/22 05:29 POC Glucose (other) 99 mg/dl (70-99) 11/10/22 17:59 Calcium 9.0 mg/dl (8.6-10.3) 11/17/22 05:29 POC Ioniz Calcium Arely 1.23 mmol/l (1.12-1.32) 11/10/22 17:59 Magnesium 1.8 mg/dl (1.7-2.4) 11/16/22 05:58 Total Bilirubin 0.5 mg/dl (0.2-1.0) 11/13/22 05:37 AST 9 U/L (13-39) L 11/13/22 05:37 ALT 5 U/L (7-52) L 11/13/22 05:37 Alkaline Phosphatase 64 U/L (34-104) 11/13/22 05:37 Troponin I High Sens 6.7 pg/ml (0-20) 11/11/22 05:21 Total Protein 5.6 gm/dl (6.0-8.3) L 11/13/22 05:37 Albumin 3.2 gm/dl (3.4-5.0) L 11/13/22 05:37 Globulin 2.4 gm/dl (2.5-4.0) L 11/13/22 05:37 Albumin/Globulin Ratio 1.3 (0.9-2) 11/13/22 05:37 Lipase 10 U/L (11-82) L 11/15/22 06:17 Urine Color Yellow 11/10/22 17:52 Urine Appearance Clear (Clear) 11/10/22 17:52 Urine pH 7.5 (4.5-7.5) 11/10/22 17:52 Ur Specific [place] 1.003 (1.000-1.030) 11/10/22 17:52 Urine Protein Negative (Negative) 11/10/22 17:52 Urine Glucose (UA) Negative (Negative) 11/10/22 17:52 Urine Ketones Negative (Negative) 11/10/22 17:52 Urine Blood Negative (Negative) 11/10/22 17:52 Urine Nitrite Negative (Negative) 11/10/22 17:52 Urine Bilirubin Negative (Negative) 11/10/22 17:52 Urine Urobilinogen Negative (Negative) 11/10/22 17:52 Ur Leukocyte Esterase Negative (Negative) 11/10/22 17:52 Stl C. cayetanensis PCR Not Detected (NotDetected) 11/14/22 15:55 Stool Rotavirus A PCR Not Detected (NotDetected) 11/14/22 15:55 Stl Adenov F 40/41 PCR Not Detected (NotDetected) 11/14/22 15:55 Stool Astrovirus (PCR) Not Detected (NotDetected) 11/14/22 15:55 Stool Campylobacter PCR Not Detected (NotDetected) 11/14/22 15:55 Stl C. diff Tox B Gene Negative Cdiff Gene (Neg) 11/14/22 15:55 Stool Cryptosporidium PCR Not Detected (NotDetected) 11/14/22 15:55 Stl E.coli Shiga Tox PCR Not Detected (NotDetected) 11/14/22 15:55 Stl Enterotoxigenic E PCR Not Detected (NotDetected) 11/14/22 15:55 Stool EPEC (PCR) Not Detected (NotDetected) 11/14/22 15:55 Stool EAEC (PCR) Not Detected (NotDetected) 11/14/22 15:55 Stl E. histolytica PCR Not Detected (NotDetected) 11/14/22 15:55 Stool Giardia Lamblia PCR Not Detected (NotDetected) 11/14/22 15:55 Stool Salmonella PCR Not Detected (NotDetected) 11/14/22 15:55 Stool Sapovirus (PCR) Not Detected (NotDetected) 11/14/22 15:55 Stl P. shigelloides PCR Not Detected (NotDetected) 11/14/22 15:55 Stl Shigella/EIEC PCR Not Detected (NotDetected) 11/14/22 15:55 St Y.enterocolitica PCR Not Detected (NotDetected) 11/14/22 15:55 Stool Vibrio (PCR) Not Detected (NotDetected) 11/14/22 15:55 Stl Vibrio cholerae PCR Not Detected (NotDetected) 11/14/22 15:55 Stl Norovirus GI/GII PCR Not Detected (NotDetected) 11/14/22 15:55 SARS-CoV-2, RNA, NAAT POSITIVE (NEGATIVE) A* 11/10/22 21:05 Impressions Abdomen/Pelvis CT 11/13/22 17:52 Exam(s): CT ABDOMEN + PELVIS Without Contrast EXAM: CT Abdomen and Pelvis Without Intravenous Contrast CLINICAL HISTORY: Reason for exam: R/O Perforation. TECHNIQUE: Axial computed tomography images of the abdomen and pelvis without intravenous contrast. CTDI is 10.58 mGy and DLP is 551.11 mGy-cm. Automated exposure control was utilized for the study. A dose lowering technique was utilized adhering to the principles of ALARA. COMPARISON: No relevant prior studies available. FINDINGS: Lung bases: Unremarkable. No mass. No consolidation. ABDOMEN: Liver: Unremarkable. Gallbladder and bile ducts: Unremarkable. No calcified stones. No ductal dilation. Pancreas: Unremarkable. No ductal dilation. Spleen: Unremarkable. No splenomegaly. Adrenals: Unremarkable. No mass. Kidneys and ureters: There are low-density lesions throughout both kidneys which are incompletely evaluated on this study. These are better visualized on the recent contrast-enhanced CT. There are punctate nonobstructing bilateral intrarenal calculi. Stomach and bowel: Unremarkable. No obstruction. No mucosal thickening. PELVIS: Appendix: No findings to suggest acute appendicitis. Bladder: Unremarkable. No stones. Reproductive: Unremarkable as visualized. ABDOMEN and PELVIS: Intraperitoneal space: Unremarkable. No free air. No significant fluid collection. Bones/joints: No acute fracture. No dislocation. Soft tissues: Unremarkable. Vasculature: There is diffuse atherosclerotic calcification of the aorta and its major branch vessels. No abdominal aortic aneurysm. Lymph nodes: Unremarkable. No enlarged lymph nodes. IMPRESSION: No acute findings in the abdomen or pelvis. Electronically signed by: Jered Wells MD 11/14/22 00:52 AM Ordered Studies 11/10/22 17:32 CT abd pelvis IV con only Stat 11/13/22 17:52 CT Abd and Pelvis [CT abd pelvis wo con] Routine Hospital Course (1) Diarrhea: Profuse nonbloody diarrhea Likely secondary to colitis due to COVID-19 H/O chronic diarrhea as well--unclear etiology ? Irritable bowel disease --CT ABD:There is evidence of a mild nonspecific colitis. Clinical correlation will be required. Bilateral nephrolithiasis. There are numerous small bilateral renal cysts. --Repeat CT ABD:No acute findings in the abdomen or pelvis. -- Stool PCR, stool for C. difficile negative --Repeat stool studies negative as well --Appreciate GI input --- Will eventually need EGD/colonoscopy as outpatient --Discontinued Zosyn as stool cx remain negative --Imodium, Bentyl as needed --lipase normal Tolerating regular diet --Minimize narcotic pain medications as able Discontinue IV fluids Diarrhea much improved Semiformed stool today Plan to discharge home today Advised to follow-up with GI as outpatient for colonoscopy COVID-19 infection Saturating well on room air Conservative management (2) Colitis: Management as above (3) Abdominal pain: Management as above (4) Hyperlipidemia: On Lipitor (5) GERD (gastroesophageal reflux disease): On Protonix (6) LINUS (generalized anxiety disorder): Continue home medications (7) Recurrent depression: on quetiapine and bupropion DVT Px SQ Lovenox CODE STATUS Full Code Total Time Total Time Spent Total Time Spent (In Minutes): 53 minutes Discharge Plan Discharge Items Patient Disposition: Home - Self-Care Reason For Visit: ABDOMINAL PAIN Discharge Diagnosis: COVID-19 infection Chronic intractable diarrhea Colitis Activity: Per Instructions section Exercise/Sports: Gradually increase as tolerated Non-emergency contact: Primary Care Provider and Flight Control Specialist Call non-emergency contact if: you have any medication questions, your symptoms worsen, your pain is concerning for you and you have a fever Follow-up/Referrals: Ashely Hercules DO [Primary Care Provider] - Diet: Heart Healthy Diet Texture: Pureed (blended smooth) Addtl Attending Provider Instructions: Follow-up with your primary care physician Dr. Ashely Hercules in 1 week as advised Follow-up with your bread packer for colonoscopy as advised Seek immediate medical attention if your symptoms reoccur or worsen Please take all medications as instructed on discharge list below. Please call if you have any questions or problems. You can reach a [facility] hospitalist on duty at [facility] 24 hours a day by calling [phone] Pending Studies at Discharge: No Stand-Alone Forms: My [facility] [employer], Smoking Cessation Medications and DC Order Prescriptions: New dicyclomine 10 mg capsule 10 mg PO BID Qty: 10 0RF Advanced Probiotic 625 mg (10 billion cell) Capsule 2 cap PO DAILY Qty: 30 0RF loperamide 2 mg Capsule 2 mg PO Q6H PRN (Reason: loose stool) Qty: 20 0RF Continued atorvastatin 40 mg tablet 40 mg PO DAILY bupropion HCl 150 mg tablet extended release 24 hr 150 mg PO DAILY omeprazole 40 mg capsule,delayed release(DR/EC) 40 mg PO DAILY quetiapine 400 mg tablet 400 mg PO DAILY Discharge Orders: Discharge Order (Routine); Ordered 11/18/22 Ordered By: Chad Singh/Other Patient Handouts: Understanding Colitis Admission Data Admit Date/Time: 11/12/22 15:39 Attending Provider: Chad Childers Admit Provider: Riley Lewis Primary Care Provider: Ashely Hercules Other Providers: Riley Lewis ; Deng Michael ; Chidi Suggs ; Jolie Nash ; Naty Gonzalez ; Elaine Valdez ; Liliana Bliss ; Wolf Fan ; Alex Friedman ; Shalonda Goldberg ; Iman Barlow ; Vinayak Kraft ; Cass Rodrigues ; Eileen Allred ; Hailey Santana ; Zee Reyes ; Aleks Ortega ; Juan Antonio Hurst ; Ike Holguin ; Angelita Ovalles ; Bernardo Larkin Jr ; Rehana Pinedo Other Interventions: Discharge Summary Assessment (RN) Last Done: 11/18/22 12:59
== END 2022-11-18 13:30 | disposition home or self-care (01) | DRG 391 ==
LOC: 3E 16:49 → ED 16:49 → 3E 22:46 → SUATTDRO 11-12 15:39